=== PATIENT | female | born 1945 | race Caucasian/White ===

== ENCOUNTER 2020-09-18 07:42 | Outpatient (CLI) | payer MEDICARE, OTHER, SELFPAY ==
--- NOTE | 2020-09-18 07:50 | MR_ITS ---
WS: [id number] MRA ANGIOGRAPHY [place] HISTORY: Unspecified HEARING LOSS,UNSPEC EAR;TINNITUS UNSPEC EAR COMPARISON: None available. TECHNIQUE: 3-D MR angiography is performed of the [place]. All images are reviewed including source images. Distal vertebral and basilar arteries are intact with no significant stenosis or plaque. Posterior ce rebral arteries are normal course and caliber. Posterior communicating arteries are both patent. Intracranial portion of the internal carotid arteries are normal course and caliber. No significant a therosclerosis, stenosis or aneurysm identified. Middle and anterior cerebral arteries are both paten t with no significant disease. Anterior communicating artery is also normal. MR/MR angio head wo con [id number] IMPRESSION: Normal MRA [place].
--- NOTE | 2020-09-18 07:50 | MR_ITS ---
WS: [id number] MR VENOGRAPHY HEAD 3-D noncontrast imaging performed through the cerebral veins. All imaging is reviewed. HISTORY: Hearing loss. Tinnitus. COMPARISON: None available. Normal size and normal signal within the superior sagittal vein and the LEFT transverse sinus and sig moid sinus and jugular vein. There is absent signal and flow in the RIGHT transverse sinus through th e jugular vein. RIGHT jugular foramen appears small caliber as compared to the LEFT. MR/[place] [id number] IMPRESSION: 1. Lack of flow voids within the LEFT transverse sinus through the jugular vei n. This may be related to thrombosis and occlusion but more likely due to hypop lasia. No prior MRI brain or CTs. On the recent angiogram [place] ther e is no significant volume loss or infarct identified within the RIGHT brain. 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 2. To confirm no dural venous sinus thrombosis consider follow-up CT venogram.
== END 2020-09-18 07:43 | disposition home or self-care (01) ==
LOC: RADSHAW 07:48
PROVIDERS: PCP Family Medicine; Visit Provider Specialist
DX: H91.90 Unspecified hearing loss, unspecified ear (principal); H93.19 Tinnitus, unspecified ear
CPT/HCPCS: 70544

== ENCOUNTER 2020-10-16 09:59 | Outpatient (CLI) | payer MEDICARE, OTHER, SELFPAY ==
--- NOTE | 2020-10-16 10:12 | USCV_ITS ---
Win Leni Age: 75 Gender: F : 1945 Exam Date: 10/16/2020 10:16 Ordering Phys: Yossi Brice MD Technologist: Shauna Paredes Exam Location: [facility] [place] Indication: RINGING IN RT EAR Risk Factors: Unknown Previous Vascular Surgery: None Right Brachial BP: / Left Brachial BP: / Right Left Velocity (cm/s) Spectral Plaque Velocity (cm/s) Spectral Plaque Syst/Diast Broadening Syst/Diast Broadening 84.90/ 19.00 Prox CCA 57.70 / 14.00 44.40/ 10.80 Mid CCA 67.30 / 18.70 56.20/ 20.70 Distal CCA 63.90 / 18.70 66.00/ 25.70 Prox ICA 63.20 / 16.10 78.90/ 25.70 Mid ICA 78.10 / 39.60 83.20/ 29.20 Distal ICA 84.70 / 28.00 54.90 ECA 49.00 1.88 ICA/CCA 1.26 Antegrade Vertebral Antegrade 35.20/ 12.90 cm/s 39.10/ 10.50 cm/s Tri Subclavian Tri 74.80 86.70 FINDINGS Comparison: none available. No significant elevation of systolic or diastolic velocities. Waveforms are normal. Minimal bilateral, intimal thickening with no elevation of velocity. CONCLUSIONS Bilateral ICA stenosis less than 50%. Minimal atherosclerosis. Dr. Lazara Ward DO (Electronically Signed) Final Date: 16 October 2020 11:15 S
== END 2020-10-16 10:00 | disposition home or self-care (01) ==
PROVIDERS: PCP Family Medicine; Visit Provider Specialist
DX: H93.A1 Pulsatile tinnitus, right ear (principal); M26.601 Right temporomandibular joint disorder, unspecified; I65.23 Occlusion and stenosis of bilateral carotid arteries
CPT/HCPCS: 93880

== ENCOUNTER → 2022-06-13 10:58 | Outpatient (BNVA) | payer MEDICARE, OTHER, SELFPAY | PROVIDERS: PCP Family Medicine; Visit Provider Registered Nurse Neonatal Intensive Care | DX: R05.9 Cough, unspecified (principal); U07.1 COVID-19 | CPT/HCPCS: 87426 ==

== ENCOUNTER 2022-10-11 13:32 | Outpatient (CLI) | payer MEDICARE, OTHER, SELFPAY ==
--- NOTE | 2022-10-11 13:38 | CT_ITS ---
WS: [id number] CT ABDOMEN PELVIS TECHNIQUE: Contrast-enhanced CT of the abdomen and pelvis with coronal and sagittal reformatted image s. CLINICAL INFORMATION: R SIDED ABDOMINAL PAIN COMPARISON: None. DLP: 974.[address] scans at [facility] use at least one of these dose optimization techniques: automated e xposure control; mA and/or kV adjustment per patient size (includes targeted exams where dose is matc hed to clinical indication); or iterative reconstruction. FINDINGS: In the RIGHT lower quadrant, there is a low-attenuation fluid collection about the appendix measuring approximately 5.5 x 5.1 cm suspicious for appendiceal abscess. Associated peripheral enhancement. Th is appears somewhat well encapsulated with surrounding ileal bowel loops. Cecum drapes over the ventr al surface of the collection with associated inflammatory stranding and thickening likely reactive. S uspected tortuous appendix within the suspected abscess cavity. Additional consideration would be arianna endix mucocele. Bibasilar atelectasis. Normal liver. Normal spleen. Small esophageal hernia. Normal portal vein and s plenic vein. Normal pancreatic parenchymal enhancement. Adrenal glands are normal. Normal renal paren chymal enhancement. No hydronephrosis. Grade 1 anterolisthesis L4 on L5. Disc space narrowing worse at L5-S1. Normal caliber abdominal aorta . Celiac and SMA are patent. Small amount of free fluid in the pelvis. Fat-containing umbilical herni a. CT/CT abdomen pelvis w con* [id number] IMPRESSION: 1. Low-attenuation fluid collection about the appendix in the RIGHT lower quad rant suspicious for ruptured appendix with abscess. This measures approximately 5.5 x 5.1 cm. This appears relatively well encapsulated. Additional considerat ion would be a mucocele of the appendix. 2. Associated inflammatory stranding and diffuse thickening of the cecum which drapes over the anterior aspect of the fluid collection. 3. Small amount of free fluid in the pelvis. 4. Small esophageal hiatal hernia. 5. No other acute findings. 6. Grade 1 anterolisthesis L4 on L5. Notified Yossi Canseco MD at 10/11/2022 2:47 PM. Patient transferred to the ER for further evaluation.
[2022-10-11] MEDS: iohexol 350 mg/mL 500 mL Btl (per mL) IV (14:07)
== END 2022-10-11 13:33 | disposition home or self-care (01) ==
LOC: RAD 13:34
PROVIDERS: PCP Family Medicine; Visit Provider Family Medicine
DX: R10.9 Unspecified abdominal pain (principal); K44.9 Diaphragmatic hernia without obstruction or gangrene
CPT/HCPCS: 74177; Q9967

== ENCOUNTER 2022-10-11 14:32 | Inpatient (IN) | payer MEDICARE, OTHER, SELFPAY ==
[2022-10-11] VITALS (20 sets, daily range): BP systolic 110–176; BP diastolic 54–79; PULSE 66–84; RESP 16–21; TEMP 36.6–37; O2SAT 91–100; BMI 28.5
--- NOTE | 2022-10-11 14:34 | XR_ITS ---
WS: [id number] Portable AP upright chest, 10/11/2022 Clinical Data: dyspnea/cough Comparison: None Findings: No nodules, masses or effusions are seen. The heart is normal. The pulmonary vascularity is not increased. No pneumonia or pneumothorax is seen. The aortic arch and descending thoracic aorta s how tortuosity. XR/XR chest 1V portable [id number] Impression: Atherosclerosis.
--- NOTE | 2022-10-11 14:53 | W.ED.ABDPA2 ---
HPI - Abdominal Pain General: Chief Complaint: Abdominal Pain Stated Complaint: Perferated appendix per Dr. Canseco Time Seen by Provider: 10/11/22 14:34 Source: patient Mode of arrival: ambulatory History of Present Illness: 7-year-old female who presents to the emergency room from her doctor's office with low right lower quadrant abdominal pain. She and her primary care doctor earlier in the day in the office had a palpable mass in the right lower quadrant. It began around September 29, it has wax and wane since then. She was seen in an urgent care setting, they thought it was constipation or a viral illness that point she did not quite as much pain, is progressed since then. She seen Dr. Canseco in the office this morning he reportedly felt a palpable mass referred for CT which confirmed a perforated appendix with a rather large walled off abscess on the CT I measured it at 6 cm x 5.4 cm. She is not on any anticoagulants she last ate around 7 AM this morning MD elicited complaint: abdominal pain Onset (ago): day(s) (12) Pain Consistency: constant Location: RLQ Severity: severe Quality: cramping Radiation: none Exacerbating factors: nothing Relieving factors: nothing Associated Symptoms: Reports bloating, change in bowel habits, GI cramping, nausea and poor appetite; Denies anorexia, belching, change in stool character, chills, coffee ground emesis, constipation, diarrhea, dyspepsia, dysuria, excessive flatus, fever(s), heartburn, hematochezia, hematuria, hematemesis, fecal incontinence, loose stools, melena, syncope and vomiting Review of Systems Const: Denies: fever(s) or chills ENMT: Denies: throat pain, ear or mastoid pain, nasal discharge or nasal congestion Card: Denies: syncope Resp: Denies: dyspnea, productive cough or non-productive cough GI: Reports: abdominal pain, nausea, bloating, GI cramping and change in bowel habits; Denies: vomiting, hematemesis, coffee ground emesis, heartburn, diarrhea, constipation, belching, excessive flatus, fecal incontinence, change in stool character, hematochezia or melena : Denies: dysuria or hematuria Skin/Breast: Denies: rash or pruritus PFSH ED PFSH: Medical History HTN (hypertension) Surgical History Status post total knee replacement, bilateral Family History Other CAD (coronary artery disease) Cancer Stroke Denies family history of Diabetes Social History Alcohol intake: never Physical Exam Const: COMMON NORMALS: no acute distress GENERAL APPEARANCE: cooperative and comfortable ORIENTATION/CONSCIOUSNESS: Yes awake, Yes oriented to person, Yes oriented to place and Yes oriented to time HENMT: COMMON NORMALS: normocephalic, atraumatic and hearing grossly normal bilaterally HEAD & SCALP: normocephalic and atraumatic Resp: COMMON NORMALS: normal respiratory effort, No retractions, No use of accessory muscles and clear to auscultation bilaterally AUSCULTATION: clear to auscultation bilaterally Cardio: COMMON NORMALS: regular rate, regular rhythm and No murmurs present (Cardio) RATE: regular rate RHYTHM: regular rhythm GI: COMMON NORMALS: No hepatosplenomegaly present AUSCULTATION: Yes normoactive bowel sounds PALPATION: Yes Tenderness to palpation present (GI) Details: RLQ, Yes Guarding due to palpation present (GI) in the RLQ and Yes No hepatosplenomegaly present Extremity: COMMON NORMALS: normal to inspection, capillary refill normal, no clubbing, cyanosis or edema, no calf tenderness and no pedal edema Neuro: SENSORIUM/ORIENTATION: Yes oriented to person, Yes oriented to place and Yes oriented to time Skin: COMMON NORMALS: no rashes or lesions noted GENERAL SKIN EXAM: no rashes or lesions noted Course Vital Signs: Vital signs: Vital Signs Temperature 98.5 F 10/11/22 20:35 Pulse Rate 68 10/12/22 04:00 Respiratory Rate 17 10/12/22 04:00 Blood Pressure 133/76 10/12/22 04:00 Pulse Oximetry 95 10/12/22 04:00 Oxygen Delivery Me thod 10/12/22 04:00 Oxygen Flow Rate 1 10/12/22 04:00 MDM - Abdominal Pain Medical Decision Making Acute appendicitis with perforation and abscess formation that is well encapsulated. There is a potential that this is a appendiceal mucocele as well coronary radiologist favors abscessed appendix. Unfortunately Dr. Cote does not feel this is amenable to placement of a drain because of overlying portions of cecum and loops of small bowel. Discussed with on-call surgery he will review the imaging and discussed with the patient and see her in the department. Medical Records I reviewed the patient's medical records. Lab Data I reviewed the patient's lab results. 10/11/22 14:50 10/11/22 14:50 Labs/Radiology: Radiology Impressions Chest X-Ray 10/11/22 14:34 Impression: Atherosclerosis. Laboratory Results WBC 9.6 10^3/uL (4.0-10.0) 10/11/22 14:50 RBC 3.85 10^6/uL (4.1-5.3) L 10/11/22 14:50 Hgb 11.4 g/dL (11.5-15.3) L 10/11/22 14:50 Hct 35.4 % (37.0-47.0) L 10/11/22 14:50 MCV 91.9 fl (81-99) 10/11/22 14:50 MCH 29.6 pg (28.0-34.0) 10/11/22 14:50 MCHC 32.2 g/dL (30.0-36.0) 10/11/22 14:50 RDW 13.3 % (12.1-15.1) 10/11/22 14:50 Plt Count 368 10^3/cmm (130-400) 10/11/22 14:50 MPV 9.5 fL (7.4-10.4) 10/11/22 14:50 Neut % (Auto) 82.9 % 10/11/22 14:50 Lymph % (Auto) 10.8 % 10/11/22 14:50 [place] % (Auto) 5.3 % 10/11/22 14:50 Eos % (Auto) 0.5 % 10/11/22 14:50 Baso % (Auto) 0.1 % 10/11/22 14:50 Neut # (Auto) 7.98 10^3/uL (1.8-7.7) H 10/11/22 14:50 Lymph # (Auto) 1.0 10^3/uL (0.8-4.8) 10/11/22 14:50 [place] # (Auto) 0.5 10^3/uL (0.2-0.9) 10/11/22 14:50 Eos # (Auto) 0.1 10^3/uL (0.0-0.8) 10/11/22 14:50 Baso # (Auto) 0.0 10^3/uL (0.0-0.1) 10/11/22 14:50 Nucleated RBC % (auto) 0 % 10/11/22 14:50 Nucleated RBCs # 0.0 /100WBC 10/11/22 14:50 Sodium 134 mmol/L (136-145) L 10/11/22 14:50 Potassium 3.6 mmol/L (3.5-5.1) 10/11/22 14:50 Chloride 97 mmol/L (98-107) L 10/11/22 14:50 Carbon Dioxide 25 mmol/L (22-29) 10/11/22 14:50 Anion Gap 15.6 (5-19) 10/11/22 14:50 BUN 10 mg/dL (8-23) 10/11/22 14:50 Creatinine 0.6 mg/dL (0.5-0.9) 10/11/22 14:50 GFR Calculation Not Reportable 10/11/22 14:50 Glucose 91 mg/dL (65-115) 10/11/22 14:50 Calculated Osmolality 277 mOsm/kg (285-295) L 10/11/22 14:50 Calcium 8.7 mg/dL (8.5-10.5) 10/11/22 14:50 Total Bilirubin 0.4 mg/dL (0.15-1.2) 10/11/22 14:50 AST 16 U/L (0-32) 10/11/22 14:50 ALT 25 U/L (0-33) 10/11/22 14:50 Alkaline Phosphatase 164 U/L (35-105) H 10/11/22 14:50 Total Protein 7.3 g/dL (6.6-8.7) 10/11/22 14:50 Albumin 3.3 g/dL (3.5-5.2) L 10/11/22 14:50 Globulin 4.0 g/dL (1.3-4.6) 10/11/22 14:50 Discharge Plan Discharge Patient Disposition: Admitted As Inpatient Admit Provider: Tonio Rutherford Clinical Impression: Acute appendicitis with appendiceal abscess Condition: Stable Coding Level of Care Code ED Furniture Dipper for Chg Fwd Exam Detailed
--- NOTE | 2022-10-11 14:55 | ECG_ITS ---
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 Measurements Intervals [place] Rate: 67 P: 47 DE: 153 QRS: 29 QRSD: 81 T: 31 QT: 389 QTc: 413 Interpretive Statements SINUS RHYTHM No previous ECG available for comparison Electronically Signed On 10-11-2022 20:28:34 MANAGER FILM by Belén Aguilar M.D. [id number]
[2022-10-11 14:58] LABS: Basophils % 0.1 %; Eosinophils # 0.1 10^3/uL (0.0-0.8); Eosinophils % 0.5 %; Hematocrit 35.4 % (37.0-47.0); Hemoglobin 11.4 g/dL (11.5-15.3); Lymphocytes % 10.8 %; Mean Corpuscular HGB Conc 32.2 g/dL (30.0-36.0); Mean Corpuscular Hemoglobin 29.6 pg (28.0-34.0); Mean Corpuscular Volume 91.9 fl (81-99); Mean Platelet Volume 9.5 fL (7.4-10.4); Monocytes # 0.5 10^3/uL (0.2-0.9); Monocytes % 5.3 %; Neutrophils # 7.98 10^3/uL (1.8-7.7); Neutrophils % 82.9 %; Nucleated Red Blood Cells % 0 %; Platelet Count 368 10^3/cmm (130-400); Red Blood Count 3.85 10^6/uL (4.1-5.3); Red Cell Distribution Width 13.3 % (12.1-15.1); White Blood Count 9.6 10^3/uL (4.0-10.0)
[2022-10-11 15:20] LABS: Alanine Aminotransferase 25 U/L (0-33); Albumin Level 3.3 g/dL (3.5-5.2); Alkaline Phosphatase 164 U/L (35-105); Anion Gap 15.6 (5-19); Aspartate Amino Transferase 16 U/L (0-32); Blood Urea Nitrogen 10 mg/dL (8-23); Calcium 8.7 mg/dL (8.5-10.5); Carbon Dioxide 25 mmol/L (22-29); Chloride 97 mmol/L (98-107); Creatinine Clr Calc Pharmacy 57.2817; Glucose 91 mg/dL (65-115); Osmolality Calculated 277 mOsm/kg (285-295); Potassium 3.6 mmol/L (3.5-5.1); Sodium 134 mmol/L (136-145); Total Bilirubin 0.4 mg/dL (0.15-1.2); Total Protein 7.3 g/dL (6.6-8.7)
[2022-10-11] MEDS: piperacillin-tazobactam 3.375 GM in sodium chloride 0.9% (plus) 50 ML IV ×2 (15:30→23:08)
--- NOTE | 2022-10-11 15:44 | P.HP_ITS ---
Providers/Chief Complaint Admitting Physician: Tonio Rutherford MD Primary Care Provider: Yossi Canseco MD Chief Complaint: Perferated appendix per Dr. Canseco History of Present Illness Leni Walden is a 77 year old female with 12 day history of RLQ abdominal pain, found on CT obtained today by PCP Dr. Canseco to have perforated appendicitis. Patient reports last meal 7am. Patient reports last colonoscopy 1 year ago was normal. She denies any blood per rectum. She does report nightly fevers. Review of Systems General: Reports: 10 or more systems reviewed and unremarkable except in HPI and below GI: Reports: abdominal pain (RLQ) Medications/Allergies Home Medications Medication Instructions Recorded Confirmed Last Taken Type calcium carbonate 400 mg calcium 400 mg PO DAILY 11/10/20 06/13/22 Unknown History (1,000 mg) chewable tablet (Antacid Ultra Strength) hydrochlorothiazide 12.5 mg tablet 12.5 mg PO DAILY 11/10/20 06/13/22 Unknown History lactobacillus combination no.9 4 4,000 mmu cells PO DAILY 11/10/20 06/13/22 Unknown History billion cell capsule (Adult 50 Plus Probiotic) multivitamin (Daily Multi-Vitamin 1 tab PO DAILY 11/10/20 06/13/22 Unknown History tablet) oxybutynin chloride 5 mg tablet 5 mg PO DAILY 12/06/21 06/13/22 Unknown History nirmatrelvir 300 mg (150 mg See Rx Instructions PO .COMPLEX 06/13/22 06/13/22 Unknown Rx x2)-ritonavir 100 mg tablet,dose PRN covid #30 tabs pack(EUA) (Paxlovid) Allergies Allergy/AdvReac Type Severity Reaction Status Date / Time Sulfa (Sulfonamide Allergy sick to Verified 06/13/22 10:54 Antibiotics) stomach PFSH Acute PFSH: Medical History HTN (hypertension) Surgical History Status post total knee replacement, bilateral Family History Other CAD (coronary artery disease) Cancer Stroke Denies family history of Diabetes Social History Alcohol intake: never Vitals/I&O/Wt Last Vital Signs Temp 98.5 F 10/11/22 14:37 Pulse 73 10/11/22 14:37 Resp 16 10/11/22 14:37 BP 147/75 10/11/22 14:37 Pulse Ox 96 10/11/22 14:37 O2 Del Method 10/11/22 14:37 Weight last 48 hrs Weight 161 lb Physical Exam Const: COMMON NORMALS: no acute distress, average body habitus, patient oriented x3 and alert GENERAL APPEARANCE: cooperative and comfortable HENMT: COMMON NORMALS: normocephalic and moist oral mucous membranes Eye: COMMON NORMALS: EOMs intact bilaterally GENERAL EYE: appearance normal, both eyes and all related structures Neck/C-Spine: COMMON NORMALS: supple GENERAL: Yes normal visual inspection Chest: COMMONS NORMALS: normal inspection of the chest Resp: COMMON NORMALS: normal respiratory effort and No use of accessory muscles EFFORT & INSPECTION: Yes able to speak in complete sentences and Yes symmetric chest movement Cardio: COMMON NORMALS: regular rate and regular rhythm PERIPHERAL PULSES: radial pulses present GI: PALPATION: Yes Soft to palpation, Yes Tenderness to palpation present (GI) Details: RLQ and Yes Palpable mass present (RLQ) Extremity: COMMON NORMALS: normal to inspection Neuro: COMMON NORMALS: patient oriented x3, moves all extremities, no focal motor deficits and no sensory deficits noted Psych: COMMON NORMALS: mental status grossly normal JUDGEMENT: Good judgement present (Psych) Skin: COMMON NORMALS: no rashes or lesions noted Sepsis: Is patient septic: No Data 10/11/22 14:50 10/11/22 14:50 CT Abd/Pel: I personally reviewed and interpreted this imaging study as follows: My impression: RLQ fluid collection likely abscess from perforated appendicitis EKG 1: EKG computer-generated impression: normal sinus rhythm A&P Assessment and plan (1) Acute appendicitis with appendiceal abscess: Plan Perforated appendicitis not amenable to percutaneous drainage due to overlying bowel loops. Will plan for laparoscopic possible open appendectomy, right hemicolectomy if needed. 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
--- NOTE | 2022-10-11 16:07 | PC.PHAR ---
pt states she takes care of her own medications-pt states she had a rx for tamiflu filled 09/29/22 5d/s pt states she only took around 5 caps states she last took around 10/01/22-
[2022-10-11] MEDS: sodium chloride 0.9% 1,000 ML 30 ML IV (16:25)
--- NOTE | 2022-10-11 16:34 | ANES.PREANE2 ---
Pre-Anesthetic Assessment Height/Weight: Height 1.6 m Weight 73.028 kg Temp Pulse Resp BP Pulse Ox O2 Del Method 97.9 F 75 16 176/79 96 10/11/22 16:18 10/11/22 16:18 10/11/22 16:18 10/11/22 16:18 10/11/22 14:37 10/11/22 16:18 Operation Date: 10/11/22 16:30 Proposed Procedures p Laparoscopic Appendectomy(Not Applicable) - Tonio Rutherford MD Familial anesthetic complications: none Was Beta Price taken within 24 hours: N/A Was Clonidine taken within 24 hours: N/A Social No alcohol and No tobacco Exam alert, oriented x 3, clear to auscultation bilaterally and regular rate & rhythm Airway Submandibular: within normal limits Cervical ROM: within normal limits Mallampati: Class II Dentition: partials CV/HEM Hypertension Anesthetic Plan ASA status: 2E Anesthesia: General (RSI) Medications/Allergies Home Medications Medication Instructions Recorded Confirmed Last Taken Type hydrochlorothiazide 12.5 mg tablet 12.5 mg PO DAILY 11/10/20 06/13/22 Unknown History L.acidophil-L.casei-B.bifid-B.longum-FOS 1 cap PO BEDTIME 10/11/22 10/11/22 10/10/22 History 2 billion cell-50 mg capsule (Probiotic Blend) calcium carbonate 500 mg calcium 500 mg PO BID PRN unknown 10/11/22 10/11/22 Unknown History (1,250 mg) chewable tablet cranberry 500 mg capsule 500 mg PO QAM 10/11/22 10/11/22 10/11/22 08:00 History fluticasone propionate 50 2 spray intranasal DAILY PRN 10/11/22 10/11/22 Unknown History mcg/actuation nasal Allergy Symptoms spray,suspension ibuprofen 200 mg tablet 400 mg PO Q6H PRN Pain 10/11/22 10/11/22 10/11/22 00:00 History multivitamin 1 tab PO QAM 10/11/22 10/11/22 10/11/22 History ondansetron 4 mg disintegrating 4 mg PO Q8H PRN Nausea And Vomiting 10/11/22 10/11/22 Unknown History tablet oxybutynin chloride 5 mg 5 mg PO QAM 10/11/22 10/11/22 10/11/22 08:00 History tablet,extended release 24 hr Allergies Allergy/AdvReac Type Severity Reaction Status Date / Time Sulfa (Sulfonamide Allergy sick to Verified 10/11/22 16:07 Antibiotics) stomach Current Medications Generic Name Dose Route Start Last Admin Trade Name Deondreq PRN Reason Stop Dose Admin Sodium Chloride 1,000 mls @ 30 mls/hr 10/11/22 16:30 10/11/22 16:25 Sodium Chloride 0.9% IV 10/12/22 16:29 30 mls/hr .Q24H SAÚL Administration PFSH Anesthesia Medical History HTN (hypertension) Surgical History Status post total knee replacement, bilateral Family History Other CAD (coronary artery disease) Cancer Stroke Denies family history of Diabetes Social History Alcohol intake: never Data Anesthesia 10/11/22 14:50 10/11/22 14:50 Short CBC 10/11/22 Range/Units 14:50 WBC 9.6 (4.0-10.0) 10^3/uL Hgb 11.4 L (11.5-15.3) g/dL Hct 35.4 L (37.0-47.0) % MCV 91.9 (81-99) fl Plt Count 368 (130-400) 10^3/cmm Neut % (Auto) 82.9 % Neut # (Auto) 7.98 H (1.8-7.7) 10^3/uL BMP 10/11/22 14:50 Sodium 134 L Potassium 3.6 Chloride 97 L Carbon Dioxide 25 BUN 10 Creatinine 0.6 Glucose 91 Calcium 8.7 Liver Function 10/11/22 Range/Units 14:50 Total Bilirubin 0.4 (0.15-1.2) mg/dL AST 16 (0-32) U/L ALT 25 (0-33) U/L Alkaline Phosphatase 164 H (35-105) U/L Albumin 3.3 L (3.5-5.2) g/dL Microbiology 10/11/22 15:55 Blood Culture - Preliminary Blood SPECIMEN COLLECTED Cardiac Studies: No Data to Display
--- NOTE | 2022-10-11 17:34 | SUR.OPER ---
DIANNE COLLINS UPDATED FAMILY [id number]
--- NOTE | 2022-10-11 18:29 | SUR.OPER ---
KARINA PACU UPDATED FAMILY TO CASE GOING OPEN [id number]
--- NOTE | 2022-10-11 18:38 | PM.MISC ---
Miscellaneous Note Purpose of Documentation: Went down to see patient just after I getting the call before 5 PM but she was already taken to the OR. Currently still in OR and procedure was converted to open. Will sign over to nighttime hospitalist.
--- NOTE | 2022-10-11 19:42 | P.OP_ITS ---
Operative Report Date of procedure: October 11, 2022 Pre-op diagnosis: Periappendiceal Abscess likely perforated appendicitis Post-op diagnosis: Periappendiceal Abscess with local purulent peritonitis Dilated appendix concerning for appendiceal mucocele Post-op findings: walled-off periappendiceal abscess local purulent peritonitis dilated appendix Procedure done: Ileocecectomy Specimens removed/disposition: Terminal ileum with appendix and cecum for permanent pathology Surgeon: Tonio Rutherford Anesthesia: General Estimated blood loss (mL): 150 Complications: none apparent Findings: walled-off periappendiceal abscess local purulent peritonitis dilated appendix concerning for appendiceal mucocele Condition: stable Disposition: PACU Brief History: Leni Walden is a 77F who presented with 12 days RLQ abdominal pain with CT obtained by PCP showing periappendiceal fluid collection likely perforated appendicitis. Unable to undergo IR drainage due to overlying loops of bowel. Procedure: The patient was brought to the operating room and positioned supine. GET anesthesia was induced without complication. The patient's left arm was tucked and right spread comfortably, abdomen prepped and draped in standard fashion. A preoperative timeout was held to confirm patient, procedure, site, and pertinent medical history. A 5mm trocar was placed to the left of the umbilicus using direct visualization technique and pneumoperitoneum established without complication. Additional 5mm trocars were placed under direct laparoscopic vision to the LLQ and suprapubic midline. The RLQ was evaluated and dense adhesions in the region of the ileocecal valve identified. Blunt and sharp retraction was utilized to free the distal ileum, sigmoid epiploica, and omental adhesions from the inflamed focus. A posterior abscess cavity was entered and purulent drainage suctioned away. The terminal ileum and proximal cecum were densely adherent to a dilated and turgid appendix. The decision was made to convert to open for ileocecectomy. A limited inferior midline incision was made and extended to just superior to the umbilicus as needed for exposure. Gentle blunt finger dissection was utilized to raise the inflamed ileocecal junction, permitting 60mm bowel load KIARA stapler to ligate and transect the uninvolved distal ileum. Enseal advanced bipolar device was used to ligate and transect the mesentery, gradually freeing and elevating the inflamed area. 60mm bowel load KIARA was used to transect the right colon after confirmation of excellent bloodflow to the area of future anas tomosis. The terminal ileum, appendix, and cecum were removed en bloc and sent as specimen for permanent pathology. The terminal ileal margin had palpable mesenteric pulse. A [id number] functional end-to-end anastomosis was made with a common 60mm KIARA bowel load with the common enterotomy closed with an additional firing of the same. The peritoneal cavity was copiously irrigated with warm saline. A peritoneal drain was placed to the RLQ via the LLQ 5mm trocar site and secured with 3-0 nylon drain stitch. The fascia was closed with running looped PDS. The subcutaneous tissues were irrigated and local anesthestic infiltrated. The skin was closed with denice and dressed with adhesive dressings. The patient was transferred to PACU in stable condition. Related Problem List Diagnoses (1) Acute appendicitis with appendiceal abscess: (2) Mucocele of appendix:
--- NOTE | 2022-10-11 20:17 | P.HP_ITS ---
Providers/Chief Complaint Admitting Physician: Tonio Rutherford MD Primary Care Provider: Yossi Canseco MD Chief Complaint: Perferated appendix per Dr. Canseco History of Present Illness Leni Walden is a 77 year old female past medical history of hypertension, bilateral knee replacement presented to the hospital after being sent from her doctor's office secondary to right lower quadrant abdominal pain. She saw her PCP and had a palpable mass in the right lower quadrant initially around September 29. It was waxing and waning since then. She also went to urgent care where they thought it was constipation with a viral illness but she does not have that much pain in the beginning but at this point it has progressed. She went to see Dr. Canseco who referred her to have a CT scan of the abdomen done which showed a perforated appendix with a large walled off abscess about 6 cm x 5.4 cm. Patient denies being on any anticoagulants at home and her last meal was 7 AM this morning. Most of this history is obtained by the chart as patient is at this point postop and still recovering from anesthesia. Patient was diagnosed with acute appendicitis with perforation and abscess perforation and taken to surgery. Case was also initially discussed with interventional radiology but because of overlying portions of cecum and loops of small bowel percutaneous drain could not be placed. Patient underwent laparoscopic surgery today which had to be converted to open laparotomy in the OR. Over report notes that dilated appendix concerning for appendiceal mucocele was seen. Sample sent to pathology. Estimated blood loss 150 cc. Peritoneal drain placed to right lo wer quadrant. The left lower quadrant trocar site. Patient was transferred to PACU in stable condition. Hemodynamically she stayed stable throughout the procedure. Patient is currently on 2 L nasal cannula saturating 94 to 95%. Patient has been seen by customs entry writer postoperatively. Medications/Allergies Home Medications Medication Instructions Recorded Confirmed Last Taken Type hydrochlorothiazide 12.5 mg tablet 12.5 mg PO QAM 11/10/20 10/11/22 10/11/22 08:00 History L.acidophil-L.casei-B.bifid-B.longum-FOS 1 cap PO BEDTIME 10/11/22 10/11/22 10/10/22 History 2 billion cell-50 mg capsule (Probiotic Blend) calcium carbonate 500 mg calcium 500 mg PO BID PRN unknown 10/11/22 10/11/22 Unknown History (1,250 mg) chewable tablet cranberry 500 mg capsule 500 mg PO QAM 10/11/22 10/11/22 10/11/22 08:00 History fluticasone propionate 50 2 spray intranasal DAILY PRN 10/11/22 10/11/22 Unknown History mcg/actuation nasal Allergy Symptoms spray,suspension ibuprofen 200 mg tablet 400 mg PO Q6H PRN Pain 10/11/22 10/11/22 10/11/22 00:00 History multivitamin 1 tab PO QAM 10/11/22 10/11/22 10/11/22 History ondansetron 4 mg disintegrating 4 mg PO Q8H PRN Nausea And Vomiting 10/11/22 10/11/22 Unknown History tablet oxybutynin chloride 5 mg 5 mg PO QAM 10/11/22 10/11/22 10/11/22 08:00 History tablet,extended release 24 hr Allergies Allergy/AdvReac Type Severity Reaction Status Date / Time Sulfa (Sulfonamide Allergy sick to Verified 10/11/22 16:07 Antibiotics) stomach PFSH Acute PFSH: Medical History HTN (hypertension) Surgical History Status post total knee replacement, bilateral Family History Other CAD (coronary artery disease) Cancer Stroke Denies family history of Diabetes Social History Alcohol intake: never Vitals/I&O/Wt Last Vital Signs Temp 97.8 F 10/11/22 19:40 Pulse 77 10/11/22 20:10 Resp 17 10/11/22 20:10 BP 119/62 10/11/22 20:10 Pulse Ox 95 10/11/22 20:10 O2 Del Method 10/11/22 20:10 O2 Flow Rate 2 10/11/22 20:10 10/11/22 10/11/22 10/11/22 06:59 14:59 22:59 Intake Total 800 / 800 Output Total 150 / 150 Balance 650 / 650 Weight last 48 hrs Weight 73.028 kg Physical Exam Narrative: General: Alert oriented x3, patient seen laying in bed appearing comfortable, denies any pain at this time. says she is sore. HEENT: Normocephalic, atraumatic, EOMI, breathing normally on 2L NC Cardio: Regular rate rhythm, normal S1-S2, Respiratory: Good bilateral air entry, no wheezes no rhonchi appreciated GI: Abdomen soft, approapriately tender to palpation, some guarding as expected, absent bowel sounds. Extremities: no edema. Data 10/11/22 14:50 10/11/22 14:50 Micro: Microbiology 10/11/22 15:55 Blood Culture - Preliminary Blood SPECIMEN COLLECTED A&P Assessment and plan (1) Mucocele of appendix: (2) Acute appendicitis with appendiceal abscess: Plan #Acute appendicitis with abscess formation and appendiceal perforation s/p laparotomy #History of hypertension ? Continue on Zosyn for another 48 hours ? Check blood culture, urine culture ? IV Tylenol if needed for fever ? Morphine for pain. ? Continue to wean off oxygen as able ? Continue IV fluids normal saline 100 cc/h ? Await pathology report ? Keep n.p.o. until cleared by general surgery ? Protonix 40 IV daily ? Heparin 5000 subcu twice daily for DVT prophylaxis ? May use IV agents for blood pressure control if needed however at this time I do not believe any medication is warranted ? Accu-Chek every 6 hours -PT OT once able and surgically cleared Full code Attestations Medical Necessity Statement*: Will cross greater than 2 midnight stay for management of appendiceal perforation abscess, status post laparotomy. Patient will need to stay in the hospital for postop care. Expect her stay to be 48 to 72 hours. Coding Level of Care Code Acute Global Program Director for [facility] Fwd Diagnoses Mucocele of appendix K38.8 Acute appendicitis with appendiceal abscess K35.33
[2022-10-11] MEDS: sodium chloride 0.9% 1,000 ML 100 ML IV (21:23)
[2022-10-11] MEDS: pantoprazole 40 mg SDV IVP (21:23)
[2022-10-11] MEDS: heparin 5,000 unit/mL INJ 1 mL 5000 UNIT SUBCUT (21:23)
[2022-10-11 22:49] LABS: Glucose Point of Care 167 mg/dL (70-110)
[2022-10-11] MEDS: morphine 4 mg/mL SDV 1 mL 2 MG IVP (23:06)
[2022-10-12] VITALS (12 sets, daily range): BP systolic 112–133; BP diastolic 66–76; PULSE 61–75; RESP 16–18; TEMP 36.8–37.1; O2SAT 89–96
[2022-10-12] LABS: Procalcitonin 0.57 ng/mL (0-0.5)
[2022-10-12] MEDS: morphine 4 mg/mL SDV 1 mL 2 MG IVP (02:36)
[2022-10-12 05:05] LABS: Glucose Point of Care 168 mg/dL (70-110)
[2022-10-12 05:26] LABS: Basophils % 0.2 %; Hematocrit 32.1 % (37.0-47.0); Hemoglobin 10.4 g/dL (11.5-15.3); Lymphocytes # 0.5 10^3/uL (0.8-4.8); Lymphocytes % 4.9 %; Mean Corpuscular HGB Conc 32.4 g/dL (30.0-36.0); Mean Corpuscular Hemoglobin 29.4 pg (28.0-34.0); Mean Corpuscular Volume 90.7 fl (81-99); Mean Platelet Volume 9.7 fL (7.4-10.4); Monocytes # 0.3 10^3/uL (0.2-0.9); Monocytes % 2.6 %; Neutrophils # 9.93 10^3/uL (1.8-7.7); Nucleated Red Blood Cells % 0 %; Platelet Count 344 10^3/cmm (130-400); Red Blood Count 3.54 10^6/uL (4.1-5.3); Red Cell Distribution Width 13.2 % (12.1-15.1); White Blood Count 10.8 10^3/uL (4.0-10.0)
[2022-10-12 05:47] LABS: Anion Gap 16.1 (5-19); Blood Urea Nitrogen 11 mg/dL (8-23); Calcium 7.8 mg/dL (8.5-10.5); Carbon Dioxide 23 mmol/L (22-29); Chloride 101 mmol/L (98-107); Creatinine Clr Calc Pharmacy 57.2817; Glucose 157 mg/dL (65-115); Magnesium 1.9 mg/dL (1.7-2.3); Osmolality Calculated 285 mOsm/kg (285-295); Potassium 4.1 mmol/L (3.5-5.1); Sodium 136 mmol/L (136-145)
[2022-10-12 06:09] LABS: Urine Appearance Clear (CLEAR); Urine Color Yellow (Yellow)
[2022-10-12 06:10] LABS: pH Urine 5 (5-7)
[2022-10-12 06:11] LABS: Protein Urine Neg (Negative)
[2022-10-12 06:13] LABS: Blood Urine 2+ (Negative); Glucose Urine UA Norm (Normal); Ketones Urine 1+ (Negative); Nitrate Urine Negative (Negative)
[2022-10-12 06:14] LABS: Bilirubin Urine Neg (Negative); Leukocyte Esterase Urine Negative (Negative); Urobilinogen Urine Norm (Negative)
[2022-10-12 06:15] LABS: Add Urine Microscopic? YES
[2022-10-12 06:16] LABS: WBC Urine 0-4 /hpf (0-5)
[2022-10-12 06:17] LABS: Add Urine Culture? No; Amorphous Sediment Urine 1+ /hpf
[2022-10-12] MEDS: sodium chloride 0.9% 1,000 ML 100 ML IV ×2 (06:35→19:54)
--- NOTE | 2022-10-12 07:31 | P.PN_ITS ---
Subjective Subjective: No acute events overnight. In good spirits following surgery yesterday. Reports abdominal pain and some rib pain adequately controlled with medication. Tolerating liquids. Not yet passing flatus. Vitals/I&O/Wt Last Vital Signs Temp 98.5 F 10/11/22 20:35 Pulse 68 10/12/22 04:00 Resp 17 10/12/22 04:00 BP 133/76 10/12/22 04:00 Pulse Ox 95 10/12/22 04:00 O2 Del Method 10/12/22 04:00 O2 Flow Rate 1 10/12/22 04:00 10/11/22 10/12/22 10/12/22 22:59 06:59 14:59 Intake Total 900 / 900 970 / 1870 Output Total 190 / 190 Balance 710 / 710 970 / 1680 Weight last 48 hrs Weight 161 lb Physical Exam Const: COMMON NORMALS: no acute distress, average body habitus, patient oriented x3 and no limitations GENERAL APPEARANCE: cooperative and comfortable ORIENTATION/CONSCIOUSNESS: Yes awake, Yes oriented to person, Yes oriented to place and Yes oriented to time HENMT: COMMON NORMALS: normocephalic, atraumatic, external ears normal, Normal external nose present and moist oral mucous membranes HEAD & SCALP: normocephalic and atraumatic NOSE: Normal external nose present EXTERNAL EAR: Yes external ears normal Eye: COMMON NORMALS: EOMs intact bilaterally and no scleral icterus GENERAL EYE: appearance normal, both eyes and all related structures Neck/C-Spine: COMMON NORMALS: supple Lymph: LYMPHATIC: no lymphedema noted Chest: COMMONS NORMALS: normal inspection of the chest CHEST: Yes Symmetrical chest wall rise Resp: COMMON NORMALS: normal respiratory effort, No retractions and No use of accessory muscles EFFORT & INSPECTION: Yes able to speak in complete sentences and Yes symmetric chest movement Cardio: COMMON NORMALS: regular rate and regular rhythm RATE: regular rate RHYTHM: regular rhythm PERIPHERAL PULSES: radial pulses present GI: COMMON NORMALS: Soft to palpation INSPECTION: Yes incision (inferior midline) Inspection of incision: drainage (mild shadowing inferior, no purulent drainage) and Yes other (Abd drain with SS drainage ~60mL reported) PALPATION: Yes Soft to palpation and Yes Tenderness to palpation present (GI) (Appropriately) Extremity: COMMON NORMALS: normal to inspection Neuro: COMMON NORMALS: patient oriented x3, CN's II-XII intact bilaterally, moves all extremities, no focal motor deficits and no sensory deficits noted SENSORIUM/ORIENTATION: Yes oriented to person, Yes oriented to place and Yes marta ented to time Psych: COMMON NORMALS: mental status grossly normal, Normal thought process present, cooperative, normal affect and speech normal SPEECH: Yes normal speech THOUGHT PROCESS: Normal thought process present Skin: COMMON NORMALS: no rashes or lesions noted GENERAL SKIN EXAM: no rashes or lesions noted WOUNDS: Yes surgical site (inferior midline abdominal, surgical dressing intact) Details: no odor and denice Details: in place Data 10/12/22 04:45 10/12/22 04:45 Micro: Microbiology 10/11/22 20:41 Blood Culture - Preliminary Blood SPECIMEN COLLECTED 10/11/22 15:55 Blood Culture - Preliminary Blood SPECIMEN COLLECTED A&P Assessment and plan (1) Acute appendicitis with appendiceal abscess: (2) Mucocele of appendix: Plan POD1 from lap converted to open ileocecectomy for periappendiceal abscess with intraoperative findings consistent with appendiceal mucocele and associated acute appendicitis with abscess. Recovering as expected. Pain control PO: scheduled tylenol and prn oxycodone. Avoid NSAIDs for 14 days postoperatively due to primary anastomosis. CLD now, anticipate advancing to regular diet when passing flatus. Continue Zosyn IV for 48 hours postop provided WBC remains appropriate. Continue chemical DVT prophylaxis. Surgical drain to remain in place for now, anticipate removal prior to discharge. Encourage ambulation. Attestations Medical Necessity Statement*: POD1 from ileocecectomy awaiting return of bowel function. Requires 48 hours postoperative antibiotics for intraoperative abscess drainage. Coding Level of Care Code Acute Intake Manager [facility] Diagnoses Acute appendicitis with appendiceal abscess K35.33 Mucocele of appendix K38.8
[2022-10-12] MEDS: heparin 5,000 unit/mL INJ 1 mL 5000 UNIT SUBCUT ×2 (08:42→19:53)
[2022-10-12] MEDS: acetaminophen 325 mg Tablet 650 MG PO ×3 (08:42→19:51)
[2022-10-12] MEDS: piperacillin-tazobactam 3.375 GM in sodium chloride 0.9% (plus) 50 ML IV ×2 (08:43→17:30)
--- NOTE | 2022-10-12 09:00 | ANE.PACU2 ---
Inpatient post-anesthesia follow up: Airway intact: Yes Vital signs: Temperature 98.8 F Pulse Rate 69 Respiratory Rate 16 Blood Pressure 132/73 Pulse Oximetry 90 Oxygen Delivery Me thod Nasal Cannula Oxygen Flow Rate 1 Fraction of Inspir ed Oxygen Hydration adequate: Yes Nausea and vomiting: No Pain level: 2 Mental status: Baseline
[2022-10-12 09:27] LABS: Glucose Point of Care 225 mg/dL (70-110)
--- NOTE | 2022-10-12 12:31 | PM.PN ---
Subjective Subjective: Abdomen is sore and she is having some bloating. Has not passed gas. No BM. No eructation or vomiting. Tolerated small amount of clear liquids this morning. Some pain on inspiration, avoids taking deep breaths. Vitals/I&O/Wt Last Vital Signs Temp 98.3 F 10/12/22 12:00 Pulse 71 10/12/22 12:00 Resp 16 10/12/22 12:00 BP 112/66 10/12/22 12:00 Pulse Ox 92 10/12/22 12:00 O2 Del Method 10/12/22 12:00 O2 Flow Rate 1 10/12/22 04:00 10/11/22 10/12/22 10/12/22 22:59 06:59 14:59 Intake Total 900 / 900 970 / 1870 Output Total 190 / 190 360 / 360 Balance 710 / 710 970 / 1680 -360 / -360 Weight last 48 hrs Weight 73.028 kg Physical Exam Const: COMMON NORMALS: patient oriented x3 and alert GENERAL APPEARANCE: cooperative ORIENTATION/CONSCIOUSNESS: Yes awake HENMT: COMMON NORMALS: oropharynx normal Neck/C-Spine: COMMON NORMALS: no JVD Resp: COMMON NORMALS: normal respiratory effort and clear to auscultation bilaterally AUSCULTATION: clear to auscultation bilaterally Cardio: COMMON NORMALS: no JVD, regular rhythm, S1 normal heart sound present, S2 normal heart sound present and No murmurs present (Cardio) RHYTHM: regular rhythm HEART SOUNDS: S1 normal heart sound present and S2 normal heart sound present GI: COMMON NORMALS: Soft to palpation AUSCULTATION: Yes Absent bowel sounds PALPATION: Yes Soft to palpation OTHER: Mildly tender Extremity: COMMON NORMALS: no joint enlargement and no pedal edema Neuro: COMMON NORMALS: patient oriented x3 and moves all extremities SENSORIUM/ORIENTATION: Yes alert Skin: COMMON NORMALS: no rashes or lesions noted GENERAL SKIN EXAM: no rashes or lesions noted Data 10/12/22 04:45 10/12/22 04:45 Micro: Microbiology 10/11/22 20:41 Blood Culture - Preliminary Blood SPECIMEN COLLECTED 10/11/22 15:55 Blood Culture - Preliminary Blood SPECIMEN COLLECTED A&P Assessment and plan (1) Mucocele of appendix: Status post open ileocecectomy for periappendiceal abscess, local purulent peritonitis. Drain for now remains. Add I-S. Tolerating some small amount of clears today. Awaiting return of bowel function. Discussed with her to ambulate. IVF stopped today. Continue IV antibiotic coverage with Zosyn. (2) Acute appendicitis with appendiceal abscess: Attestations Medical Necessity Statement*: Continue admission for assessment management following complicated appendicitis with periappendiceal abscess, with local purulent peritonitis. Coding Level of Care Code Acute Dynamo Tender for [facility] Fwd Diagnoses Mucocele of appendix K38.8 Acute appendicitis with appendiceal abscess K35.33
[2022-10-12] MEDS: oxyCODONE 5 mg IR Tab/Cap PO ×2 (12:39→19:52)
[2022-10-12 14:35] LABS: Glucose Point of Care 168 mg/dL (70-110)
[2022-10-12] MEDS: pantoprazole 40 mg SDV IVP (19:53)
[2022-10-12 21:25] LABS: Glucose Point of Care 149 mg/dL (70-110)
[2022-10-13] VITALS (9 sets, daily range): BP systolic 107–130; BP diastolic 60–69; PULSE 60–74; RESP 16–18; TEMP 36.8–37.3; O2SAT 90–95
[2022-10-13] MEDS: acetaminophen 325 mg Tablet 650 MG PO ×4 (01:09→18:52)
[2022-10-13] MEDS: piperacillin-tazobactam 3.375 GM in sodium chloride 0.9% (plus) 50 ML IV ×3 (01:10→16:46)
[2022-10-13 01:27] LABS: Basophils % 0.1 %; Hematocrit 28.1 % (37.0-47.0); Hemoglobin 9.1 g/dL (11.5-15.3); Lymphocytes # 0.9 10^3/uL (0.8-4.8); Lymphocytes % 9.6 %; Mean Corpuscular HGB Conc 32.4 g/dL (30.0-36.0); Mean Corpuscular Hemoglobin 29.5 pg (28.0-34.0); Mean Corpuscular Volume 91.2 fl (81-99); Mean Platelet Volume 9.8 fL (7.4-10.4); Monocytes # 0.4 10^3/uL (0.2-0.9); Neutrophils # 7.61 10^3/uL (1.8-7.7); Neutrophils % 86.1 %; Nucleated Red Blood Cells % 0 %; Platelet Count 331 10^3/cmm (130-400); Red Blood Count 3.08 10^6/uL (4.1-5.3); Red Cell Distribution Width 13.5 % (12.1-15.1); White Blood Count 8.8 10^3/uL (4.0-10.0)
[2022-10-13 01:48] LABS: Alanine Aminotransferase 15 U/L (0-33); Albumin Level 2.8 g/dL (3.5-5.2); Alkaline Phosphatase 103 U/L (35-105); Anion Gap 12.8 (5-19); Aspartate Amino Transferase 12 U/L (0-32); Blood Urea Nitrogen 9 mg/dL (8-23); Calcium 7.6 mg/dL (8.5-10.5); Carbon Dioxide 25 mmol/L (22-29); Chloride 105 mmol/L (98-107); Creatinine Clr Calc Pharmacy 57.2817; Globulin 2.9 g/dL (1.3-4.6); Glucose 113 mg/dL (65-115); Osmolality Calculated 287 mOsm/kg (285-295); Potassium 3.8 mmol/L (3.5-5.1); Sodium 139 mmol/L (136-145); Total Bilirubin 0.3 mg/dL (0.15-1.2); Total Protein 5.7 g/dL (6.6-8.7)
[2022-10-13 04:45] LABS: Glucose Point of Care 114 mg/dL (70-110)
[2022-10-13] MEDS: oxyCODONE 5 mg IR Tab/Cap PO ×3 (06:17→20:33)
--- NOTE | 2022-10-13 07:29 | PM.PN ---
Subjective Subjective: No acute events overnight. Ambulated x3 yesterday. Reports moderate incisional pain well controlled with oral medications. Passing flatus this morning, awaiting BM. Vitals/I&O/Wt Last Vital Signs Temp 99.2 F 10/13/22 04:00 Pulse 71 10/13/22 04:00 Resp 16 10/13/22 06:17 BP 120/68 10/13/22 04:00 Pulse Ox 90 10/13/22 04:00 O2 Del Method 10/13/22 04:00 O2 Flow Rate 1 10/13/22 04:00 10/12/22 10/13/22 10/13/22 22:59 06:59 14:59 Intake Total 1770 / 2060 1050 / 3110 Balance 1770 / 1700 1050 / 2750 Weight last 48 hrs Weight 161 lb Physical Exam Const: COMMON NORMALS: no acute distress, patient oriented x3 and alert GENERAL APPEARANCE: cooperative and comfortable HENMT: COMMON NORMALS: normocephalic, atraumatic, external ears normal and Normal external nose present HEAD & SCALP: normocephalic and atraumatic NOSE: Normal external nose present EXTERNAL EAR: Yes external ears normal Eye: COMMON NORMALS: EOMs intact bilaterally and no scleral icterus GENERAL EYE: appearance normal, both eyes and all related structures ALIGNMENT: Yes alignment normal Chest: COMMONS NORMALS: normal inspection of the chest CHEST: Yes Symmetrical chest wall rise Resp: COMMON NORMALS: normal respiratory effort and No retractions EFFORT & INSPECTION: Yes able to speak in complete sentences and Yes symmetric chest movement OTHER: on 1L O2 via NC Cardio: COMMON NORMALS: regular rate and regular rhythm RATE: regular rate RHYTHM: regular rhythm PERIPHERAL PULSES: radial pulses present GI: COMMON NORMALS: Soft to palpation INSPECTION: No abdominal distension and Yes incision (low midline, denice intact) Inspection of incision: healing well PALPATION: Yes Soft to palpation and Yes Tenderness to palpation present (GI) (appropriate periincisional) OTHER: surgical drain in place with SS output Extremity: COMMON NORMALS: normal to inspection Neuro: COMMON NORMALS: patient oriented x3 SENSORIUM/ORIENTATION: Yes alert Data 10/13/22 01:12 10/13/22 01:12 Micro: Microbiology 10/11/22 20:41 Blood Culture - Preliminary Blood NEGATIVE TO DATE 10/11/22 15:55 Blood Culture - Preliminary Blood NEGATIVE TO DATE A&P Assessment and plan (1) Acute appendicitis with appendiceal abscess: (2) Mucocele of appendix: Plan POD2 from laparoscopic converted to open ileocecectomy for periappendiceal abscess with likely appendiceal mucocele, recovering as expected. Continue pain control PO PRN Ambulate To complete 48 hours postoperative antibiotics (Zosyn) this afternoon Passing flatus, advance diet as tolerated to regular Continue DVT ppx Anticipate removal of surgical drain prior to discharge Attestations Medical Necessity Statement*: Requires inpatient care for recovery from ileocecectomy, continued IV Abx Coding Level of Care Code Acute Service Station Manager for [facility] Fwd Diagnoses Acute appendicitis with appendiceal abscess K35.33 Mucocele of appendix K38.8
[2022-10-13] MEDS: heparin 5,000 unit/mL INJ 1 mL 5000 UNIT SUBCUT ×2 (09:52→20:34)
[2022-10-13 11:43] LABS: Glucose Point of Care 109 mg/dL (70-110)
--- NOTE | 2022-10-13 15:43 | PM.PN ---
Subjective Subjective: He states overall doing well. He did not have the best appetite today, but did try several items for breakfast. Did enjoy p.o. the most. Food is staying down. She is passing flatus. No BM so far. No irritation. Lower abdomen is still sore. She is spoken with surgery this morning, dressing was changed, diet was advanced, and the drainage is to be reassessed again tomorrow. She has ambulated 3 times yesterday, plans to do more walking today. Vitals/I&O/Wt Last Vital Signs Temp 98.5 F 10/13/22 12:00 Pulse 65 10/13/22 12:00 Resp 18 10/13/22 14:22 BP 113/69 10/13/22 12:00 Pulse Ox 93 10/13/22 12:00 O2 Del Method 10/13/22 12:00 O2 Flow Rate 1 10/13/22 12:00 10/13/22 10/13/22 10/13/22 06:59 14:59 22:59 Intake Total 1050 / 3110 650 / 650 Output Total 60 / 490 Balance 990 / 2620 650 / 650 Physical Exam Const: COMMON NORMALS: patient oriented x3 and alert GENERAL APPEARANCE: cooperative ORIENTATION/CONSCIOUSNESS: Yes awake HENMT: COMMON NORMALS: oropharynx normal Neck/C-Spine: COMMON NORMALS: no JVD Resp: COMMON NORMALS: normal respiratory effort and clear to auscultation bilaterally AUSCULTATION: clear to auscultation bilaterally Cardio: COMMON NORMALS: no JVD, regular rhythm, S1 normal heart sound present, S2 normal heart sound present and No murmurs present (Cardio) RHYTHM: regular rhythm HEART SOUNDS: S1 normal heart sound present and S2 normal heart sound present GI: COMMON NORMALS: Soft to palpation AUSCULTATION: Yes normoactive bowel sounds PALPATION: Yes Soft to palpation OTHER: Mildly tender Extremity: COMMON NORMALS: no joint enlargement and no pedal edema Neuro: COMMON NORMALS: patient oriented x3 and moves all extremities SENSORIUM/ORIENTATION: Yes alert Skin: COMMON NORMALS: no rashes or lesions noted GENERAL SKIN EXAM: no rashes or lesions noted Data 10/13/22 01:12 10/13/22 01:12 Micro: Microbiology 10/11/22 20:41 Blood Culture - Preliminary Blood NEGATIVE TO DATE 10/11/22 15:55 Blood Culture - Preliminary Blood NEGATIVE TO DATE A&P Assessment and plan (1) Mucocele of appendix: Continue IV antibiotic while she is here. Status post open ileocecectomy for periappendiceal abscess, local purulent peritonitis. She has been ambulating. Tolerating diet so far, passing flatus, although no BM yet. Drain will be reassessed again tomorrow. IVF discontinued. Requiring minimal oxygen which anticipate should improve. (2) Acute appendicitis with appendiceal abscess: Attestations Medical Necessity Statement*: Continue admission for assessment management following ileocolectomy for periappendiceal abscess and local purulent peritonitis. Coding Level of Care Code Acute Environmental Science Program Director for [facility] Diagnoses Mucocele of appendix K38.8 Acute appendicitis with appendiceal abscess K35.33
[2022-10-13 17:07] LABS: Glucose Point of Care 136 mg/dL (70-110)
[2022-10-13] MEDS: pantoprazole 40 mg SDV IVP (20:33)
[2022-10-14] VITALS (7 sets, daily range): BP systolic 110–157; BP diastolic 62–84; PULSE 70–100; RESP 16–19; TEMP 36.7–37; O2SAT 90–93
[2022-10-14 00:48] LABS: Glucose Point of Care 98 mg/dL (70-110)
[2022-10-14] MEDS: acetaminophen 325 mg Tablet 650 MG PO ×4 (01:34→20:29)
[2022-10-14] MEDS: piperacillin-tazobactam 3.375 GM in sodium chloride 0.9% (plus) 50 ML IV (01:35)
[2022-10-14] MEDS: ondansetron 2 mg/ML SDV 2 mL 4 MG IVP ×2 (05:00→17:54)
[2022-10-14 05:18] LABS: Basophils % 0.2 %; Eosinophils % 0.5 %; Hematocrit 29.2 % (37.0-47.0); Hemoglobin 9.2 g/dL (11.5-15.3); Lymphocytes # 1.6 10^3/uL (0.8-4.8); Lymphocytes % 18.3 %; Mean Corpuscular HGB Conc 31.5 g/dL (30.0-36.0); Mean Corpuscular Hemoglobin 29.3 pg (28.0-34.0); Monocytes # 0.4 10^3/uL (0.2-0.9); Monocytes % 4.4 %; Neutrophils # 6.76 10^3/uL (1.8-7.7); Neutrophils % 76.3 %; Nucleated Red Blood Cells % 0 %; Platelet Count 308 10^3/cmm (130-400); Red Blood Count 3.14 10^6/uL (4.1-5.3); Red Cell Distribution Width 13.8 % (12.1-15.1); White Blood Count 8.9 10^3/uL (4.0-10.0)
[2022-10-14 05:40] LABS: Blood Urea Nitrogen 10 mg/dL (8-23); Calcium 7.4 mg/dL (8.5-10.5); Carbon Dioxide 23 mmol/L (22-29); Chloride 107 mmol/L (98-107); Creatinine Clr Calc Pharmacy 57.2817; Glucose 85 mg/dL (65-115); Osmolality Calculated 284 mOsm/kg (285-295); Sodium 138 mmol/L (136-145)
[2022-10-14 05:41] LABS: Anion Gap 11.8 (5-19); Potassium 3.8 mmol/L (3.5-5.1)
[2022-10-14 06:37] LABS: Glucose Point of Care 95 mg/dL (70-110)
--- NOTE | 2022-10-14 08:16 | PM.PN ---
Subjective Subjective: No acute events overnight. Pain well controlled. Ambulatory. +flatus, awaiting BM. Vitals/I&O/Wt Last Vital Signs Temp 98.0 F 10/14/22 04:00 Pulse 81 10/14/22 04:00 Resp 18 10/14/22 04:00 BP 110/62 10/14/22 04:00 Pulse Ox 90 10/14/22 04:00 O2 Del Method 10/14/22 04:00 O2 Flow Rate 1 10/13/22 12:00 10/13/22 10/14/22 10/14/22 22:59 06:59 14:59 Intake Total 650 / 1300 50 / 1350 Balance 650 / 1300 50 / 1350 Physical Exam Const: COMMON NORMALS: no acute distress, average body habitus, patient oriented x3 and no limitations HENMT: COMMON NORMALS: normocephalic, atraumatic, external ears normal and Normal external nose present HEAD & SCALP: normocephalic and atraumatic NOSE: Normal external nose present EXTERNAL EAR: Yes external ears normal Eye: COMMON NORMALS: EOMs intact bilaterally and no scleral icterus GENERAL EYE: appearance normal, both eyes and all related structures Neck/C-Spine: COMMON NORMALS: full ROM, supple and no JVD Chest: COMMONS NORMALS: normal inspection of the chest CHEST: Yes Symmetrical chest wall rise Resp: COMMON NORMALS: normal respiratory effort, No retractions and No use of accessory muscles EFFORT & INSPECTION: Yes able to speak in complete sentences and Yes symmetric chest movement Cardio: COMMON NORMALS: no JVD GI: COMMON NORMALS: Soft to palpation INSPECTION: Yes abdominal distension (mild), Yes incision (inferior midline) Inspection of incision: healing well and Yes other (JESSENIA with 50 mL/day SS drainage) PALPATION: Yes Soft to palpation, Yes Tenderness to palpation present (GI) (appropriate periincisional), No Guarding due to palpation present (GI) and No Rigid due to palpation Extremity: COMMON NORMALS: normal to inspection and full ROM Neuro: COMMON NORMALS: patient oriented x3, moves all extremities, no focal motor deficits and no sensory deficits noted Psych: COMMON NORMALS: mental status grossly normal, Normal thought process present, cooperative and normal affect THOUGHT PROCESS: Normal thought process present Skin: COMMON NORMALS: no rashes or lesions noted GENERAL SKIN EXAM: no rashes or lesions noted Data 10/14/22 04:47 10/14/22 04:47 A&P Assessment and plan (1) Acute appendicitis with appendiceal abscess: (2) Mucocele of appendix: Plan POD3 from ileocecectomy for periappendiceal abscess and probably mucocele, recovering well. Awaiting bowel movement prior to discharge, continues to pass flatus. Leukocytosis resolved. 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
[2022-10-14] MEDS: amoxicillin-clav 500-125 mg Tablet 1 TAB PO ×3 (08:43→20:29)
[2022-10-14] MEDS: heparin 5,000 unit/mL INJ 1 mL 5000 UNIT SUBCUT ×2 (08:44→20:29)
[2022-10-14] MEDS: psyllium powder Pkt 1 PACKET PO (08:48)
[2022-10-14 11:11] LABS: Glucose Point of Care 188 mg/dL (70-110)
--- NOTE | 2022-10-14 13:03 | PC.SOCIAL ---
Pg 2 IMM Explained to pt Pg 2 IMM. No questions voiced. Provided pt a copy. Initialed, dated, & timed a copy & placed in chart.
[2022-10-14 17:00] LABS: Glucose Point of Care 111 mg/dL (70-110)
--- NOTE | 2022-10-14 20:38 | P.PN_ITS ---
Subjective Subjective: Today she is having some mild nausea. No vomiting. So far no BM. Vitals/I&O/Wt Last Vital Signs Temp 98.2 F 10/14/22 20:00 Pulse 70 10/14/22 20:00 Resp 19 H 10/14/22 20:00 BP 137/65 10/14/22 20:00 Pulse Ox 92 10/14/22 20:00 O2 Del Method 10/14/22 20:00 O2 Flow Rate 1 10/13/22 12:00 10/14/22 10/14/22 10/14/22 06:59 14:59 22:59 Intake Total 50 / 1350 410 / 410 360 / 770 Balance 50 / 1350 410 / 410 360 / 770 Physical Exam Const: COMMON NORMALS: patient oriented x3 and alert GENERAL APPEARANCE: cooperative ORIENTATION/CONSCIOUSNESS: Yes awake HENMT: COMMON NORMALS: oropharynx normal Neck/C-Spine: COMMON NORMALS: no JVD Resp: COMMON NORMALS: normal respiratory effort and clear to auscultation bilaterally AUSCULTATION: clear to auscultation bilaterally Cardio: COMMON NORMALS: no JVD, regular rhythm, S1 normal heart sound present, S2 normal heart sound present and No murmurs present (Cardio) RHYTHM: regular rhythm HEART SOUNDS: S1 normal heart sound present and S2 normal heart sound present GI: COMMON NORMALS: Normal to inspection, nondistended, normoactive bowel sounds present and Soft to palpation AUSCULTATION: Yes normoactive bowel sounds and Yes Absent bowel sounds PALPATION: Yes Soft to palpation OTHER: Serous appearing pinkish drainage from drain. Extremity: COMMON NORMALS: no joint enlargement and no pedal edema Neuro: COMMON NORMALS: patient oriented x3 and moves all extremities SENSORIUM/ORIENTATION: Yes alert Skin: COMMON NORMALS: no rashes or lesions noted GENERAL SKIN EXAM: no yasmani hes or lesions noted Data 10/14/22 04:47 10/14/22 04:47 A&P Assessment and plan (1) Mucocele of appendix: She is having some nausea today. As needed. So far otherwise improving well, although no BM yet. She was transitioned to oral antibiotic. expressed concern whether the course will be long enough, although so far she is improving well, there is no signs of anastomosis compromise or any purulent discharge from the drain. She remains afebrile with leukocytosis resolved. Continue reassessment while hospitalized. Status post open ileocecectomy for periappendiceal abscess, local purulent peritonitis. She has been ambulating. Tolerating diet so far, passing flatus, although no BM yet. Drain will be reassessed again tomorrow. Weaned off oxygen. (2) Acute appendicitis with appendiceal abscess: Attestations Medical Necessity Statement*: Continue admission for assessment management following ileocolectomy for periappendiceal abscess and local purulent peritonitis. 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
[2022-10-14] MEDS: pantoprazole 40 mg SDV IVP (21:11)
[2022-10-15] VITALS: BP 126/71; PULSE 60; RESP 16; TEMP 37.2; O2SAT 98
[2022-10-15 00:52] LABS: Glucose Point of Care 117 mg/dL (70-110)
--- NOTE | 2022-10-15 01:26 | PC.NURSE ---
Patient reported a significant amount of flatus during rounding, but continues to have no bowel movements.
[2022-10-15] MEDS: acetaminophen 325 mg Tablet 650 MG PO ×3 (02:25→22:10)
[2022-10-15 04:00] VITALS: BP 131/65; PULSE 77; RESP 19; TEMP 37.1; O2SAT 91
[2022-10-15 06:08] LABS: Basophils % 0.1 %; Eosinophils # 0.1 10^3/uL (0.0-0.8); Eosinophils % 1.2 %; Hematocrit 28.9 % (37.0-47.0); Hemoglobin 9.3 g/dL (11.5-15.3); Lymphocytes # 1.2 10^3/uL (0.8-4.8); Mean Corpuscular HGB Conc 32.2 g/dL (30.0-36.0); Mean Corpuscular Hemoglobin 29.2 pg (28.0-34.0); Mean Corpuscular Volume 90.9 fl (81-99); Mean Platelet Volume 9.6 fL (7.4-10.4); Monocytes # 0.5 10^3/uL (0.2-0.9); Monocytes % 6.4 %; Neutrophils # 5.86 10^3/uL (1.8-7.7); Nucleated Red Blood Cells % 0 %; Platelet Count 413 10^3/cmm (130-400); Red Blood Count 3.18 10^6/uL (4.1-5.3); Red Cell Distribution Width 13.9 % (12.1-15.1); White Blood Count 7.7 10^3/uL (4.0-10.0)
[2022-10-15 06:10] LABS: Anion Gap 11.5 (5-19); Blood Urea Nitrogen 8 mg/dL (8-23); Calcium 7.6 mg/dL (8.5-10.5); Carbon Dioxide 26 mmol/L (22-29); Chloride 104 mmol/L (98-107); Creatinine Clr Calc Pharmacy 57.2817; Glucose 100 mg/dL (65-115); Osmolality Calculated 284 mOsm/kg (285-295); Potassium 3.5 mmol/L (3.5-5.1); Sodium 138 mmol/L (136-145)
--- NOTE | 2022-10-15 06:21 | PC.NURSE ---
When emptying the JESSENIA drain, the amount for my shift was 60 mL.
[2022-10-15 06:44] LABS: Glucose Point of Care 112 mg/dL (70-110)
[2022-10-15 07:44] VITALS: BP 138/78; PULSE 68; RESP 17; TEMP 36.8; O2SAT 90
[2022-10-15] MEDS: amoxicillin-clav 500-125 mg Tablet 1 TAB PO ×3 (08:45→20:44)
[2022-10-15] MEDS: heparin 5,000 unit/mL INJ 1 mL 5000 UNIT SUBCUT ×2 (08:46→20:44)
--- NOTE | 2022-10-15 08:46 | PM.PN ---
Subjective Subjective: Vomiting last night after meal and this morning. Pain adequately controlled. Ambulatory. Passing flatus and BM. Vitals/I&O/Wt Last Vital Signs Temp 98.3 F 10/15/22 07:44 Pulse 68 10/15/22 07:44 Resp 17 10/15/22 07:44 BP 138/78 10/15/22 07:44 Pulse Ox 90 10/15/22 07:44 O2 Del Method 10/15/22 04:00 O2 Flow Rate 1 10/13/22 12:00 10/14/22 10/15/22 10/15/22 22:59 06:59 14:59 Intake Total 360 / 770 480 / 1250 Output Total 60 / 60 Balance 360 / 770 420 / 1190 Physical Exam Const: COMMON NORMALS: no acute distress, average body habitus, patient oriented x3 and no limitations HENMT: COMMON NORMALS: normocephalic, atraumatic, external ears normal and Normal external nose present HEAD & SCALP: normocephalic and atraumatic NOSE: Normal external nose present EXTERNAL EAR: Yes external ears normal Eye: COMMON NORMALS: EOMs intact bilaterally and no scleral icterus GENERAL EYE: appearance normal, both eyes and all related structures Neck/C-Spine: COMMON NORMALS: full ROM, supple and no JVD Chest: COMMONS NORMALS: normal inspection of the chest CHEST: Yes Symmetrical chest wall rise Resp: COMMON NORMALS: normal respiratory effort, No retractions and No use of accessory muscles EFFORT & INSPECTION: Yes able to speak in complete sentences and Yes symmetric chest movement Cardio: COMMON NORMALS: no JVD GI: COMMON NORMALS: Soft to palpation INSPECTION: Yes abdominal distension (mild), Yes incision (inferior midline) Inspection of incision: healing well and Yes other (JESSENIA with serous drainage, removed on AM rounds) PALPATION: Yes Soft to palpation, Yes Tenderness to palpation present (GI) (appropriate periincisional), No Guarding due to palpation present (GI) and No Rigid due to palpation Extremity: COMMON NORMALS: normal to inspection and full ROM Neuro: COMMON NORMALS: patient oriented x3, moves all extremities, no focal motor deficits and no sensory deficits noted Psych: COMMON NORMALS: mental status grossly normal, Normal thought process present, cooperative and normal affect THOUGHT PROCESS: Normal thought process present Skin: COMMON NORMALS: no rashes or lesions noted GENERAL SKIN EXAM: no rashes or lesions noted Data 10/15/22 05:44 10/15/22 05:44 A&P Assessment and plan (1) Acute appendicitis with appendiceal abscess: (2) Mucocele of appendix: Plan POD4 from ileocecectomy for periappendiceal abscess and probably mucocele, recovering well. Passing flatus and stool. Leukocytosis resolved. Has some nausea and vomiting. Continue pain control PO prn Continue regular diet as tolerated, gentle bowel regimen PO antibiotics to complete today Surgical drain removed on AM rounds Awaiting resolution of N/V prior to discharge Attestations Medical Necessity Statement*: Continue admission for assessment & management following ileocolectomy for periappendiceal abscess and local purulent peritonitis. 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
[2022-10-15 11:52] LABS: Glucose Point of Care 112 mg/dL (70-110)
[2022-10-15 12:00] VITALS: BP 136/75; PULSE 65; O2SAT 94
[2022-10-15] MEDS: ondansetron 2 mg/ML SDV 2 mL 4 MG IVP (15:01)
[2022-10-15 15:51] VITALS: BP 152/74; PULSE 72; RESP 18; O2SAT 92
[2022-10-15 17:07] LABS: Glucose Point of Care 133 mg/dL (70-110)
[2022-10-15 20:00] VITALS: BP 145/75; PULSE 80; RESP 16; TEMP 37.2; O2SAT 91
--- NOTE | 2022-10-15 20:31 | P.PN_ITS ---
Subjective Subjective: Today she again had a bit of nausea. Drain has been removed. She has ambulated. They have discussed with surgeon reassessment with consideration for discharge tomorrow if all goes well. Vitals/I&O/Wt Last Vital Signs Temp 98.3 F 10/15/22 07:44 Pulse 72 10/15/22 15:51 Resp 18 10/15/22 15:51 BP 152/74 10/15/22 15:51 Pulse Ox 92 10/15/22 15:51 O2 Del Method 10/15/22 04:00 O2 Flow Rate 1 10/13/22 12:00 10/15/22 10/15/22 10/15/22 06:59 14:59 22:59 Intake Total 480 / 1250 240 / 240 Output Total 60 / 60 Balance 420 / 1190 240 / 240 Physical Exam Narrative: Accompanied by her . In chair. Const: COMMON NORMALS: patient oriented x3 and alert GENERAL APPEARANCE: cooperative ORIENTATION/CONSCIOUSNESS: Yes awake HENMT: COMMON NORMALS: oropharynx normal Neck/C-Spine: COMMON NORMALS: no JVD Resp: COMMON NORMALS: normal respiratory effort and clear to auscultation bilaterally AUSCULTATION: clear to auscultation bilaterally Cardio: COMMON NORMALS: no JVD, regular rhythm, S1 normal heart sound present, S2 normal heart sound present and No murmurs present (Cardio) RHYTHM: regular rhythm HEART SOUNDS: S1 normal heart sound present and S2 normal heart sound present GI: COMMON NORMALS: Normal to inspection, nondistended, normoactive bowel sounds present and Soft to palpation AUSCULTATION: Yes normoactive bowel sounds and Yes Absent bowel sounds PALPATION: Yes Soft to palpation Extremity: COMMON NORMALS: no joint enlargement and no pedal edema Neuro: COMMON NORMALS: patient oriented x3 and moves all extremities SENSORIUM/ORIENTATION: Yes alert Skin: COMMON NORMALS: no rashes or lesions noted GENERAL SKIN EXAM: no rashes or lesions noted Data 10/15/22 05:44 10/15/22 05:44 A&P Assessment and plan (1) Mucocele of appendix: Some nausea today. Passing flatus. Has had BM. Drain is removed. Additional monitoring hospital today, if continues to improve possible discharge tomorrow. On Augmentin. Status post open ileocecectomy for periappendiceal abscess, local purulent peritonitis. She has been ambulating. Tolerating diet so far, passing flatus, although no BM yet. Drain will be reassessed again tomorrow. Weaned off oxygen. (2) Acute appendicitis with appendiceal abscess: Attestations Medical Necessity Statement*: Continue admission for assessment management following ileocolectomy for periappendiceal abscess and local purulent peritonit is. 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 Fwd Diagnoses Mucocele of appendix K38.8 Acute appendicitis with appendiceal abscess K35.33
[2022-10-15] MEDS: pantoprazole 40 mg SDV IVP (20:51)
[2022-10-16 00:40] VITALS: BP 149/75; PULSE 82; RESP 19; TEMP 37.2; O2SAT 90
[2022-10-16 01:18] LABS: Glucose Point of Care 123 mg/dL (70-110)
[2022-10-16 04:00] VITALS: BP 138/72; PULSE 82; RESP 19; TEMP 37.1; O2SAT 93
[2022-10-16 06:02] LABS: Glucose Point of Care 130 mg/dL (70-110)
--- NOTE | 2022-10-16 07:32 | P.PN_ITS ---
Subjective Subjective: No acute events overnight. Nausea resolved. Ambulatory. Continued bowel movements, loose now. Looking forward to discharge today. Vitals/I&O/Wt Last Vital Signs Temp 98.7 F 10/16/22 04:00 Pulse 82 10/16/22 04:00 Resp 19 H 10/16/22 04:00 BP 138/72 10/16/22 04:00 Pulse Ox 93 10/16/22 04:00 O2 Del Method 10/16/22 04:00 O2 Flow Rate 1 10/13/22 12:00 10/15/22 10/16/22 10/16/22 22:59 06:59 14:59 Intake Total 480 / 720 480 / 1200 Balance 480 / 720 480 / 1200 Physical Exam Const: COMMON NORMALS: no acute distress, average body habitus, patient oriented x3 and no limitations HENMT: COMMON NORMALS: normocephalic, atraumatic, external ears normal and Normal external nose present HEAD & SCALP: normocephalic and atraumatic NOSE: Normal external nose present EXTERNAL EAR: Yes external ears normal Eye: COMMON NORMALS: EOMs intact bilaterally and no scleral icterus GENERAL EYE: appearance normal, both eyes and all related structures Neck/C-Spine: COMMON NORMALS: full ROM, supple and no JVD Chest: COMMONS NORMALS: normal inspection of the chest CHEST: Yes Symmetrical chest wall rise Resp: COMMON NORMALS: normal respiratory effort, No retractions and No use of accessory muscles EFFORT & INSPECTION: Yes able to speak in complete sentences and Yes symmetric chest movement Cardio: COMMON NORMALS: no JVD GI: COMMON NORMALS: Soft to palpation INSPECTION: Yes abdominal distension (mild), Yes incision (inferior midline) Inspection of incision: healing well and Yes other (JESSENIA with serous drainage, removed on AM rounds) PALPATION: Yes Soft to palpation, Yes Tenderness to palpation present (GI) (appropriate periincisional), No Guarding due to palpation present (GI) and No Rigid due to palpation Extremity: COMMON NORMALS: normal to inspection and full ROM Neuro: COMMON NORMALS: patient oriented x3, moves all extremities, no focal m otor deficits and no sensory deficits noted Psych: COMMON NORMALS: mental status grossly normal, Normal thought process present, cooperative and normal affect THOUGHT PROCESS: Normal thought process present Skin: COMMON NORMALS: no rashes or lesions noted GENERAL SKIN EXAM: no rashes or lesions noted Data 10/15/22 05:44 10/15/22 05:44 A&P Assessment and plan (1) Acute appendicitis with appendiceal abscess: (2) Mucocele of appendix: Plan POD5 from ileocecectomy for periappendiceal abscess and probable mucocele, recovering well. Passing flatus and stool. Leukocytosis resolved. Nausea and vomiting resolved. Continue pain control PO prn Continue regular diet as tolerated No further antibiotics needed from surgical perspective Stable for and agreeable to discharge to home today Attestations Medical Necessity Statement*: Patient required admission for ileocecectomy for periappendiceal abscess and likely appendiceal mucocele. Coding Level of Care Code Acute Calender Operator for [facility] Diagnoses Acute appendicitis with appendiceal abscess K35.33 Mucocele of appendix K38.8
[2022-10-16 07:38] VITALS: BP 152/84; PULSE 71; RESP 16; TEMP 37.3; O2SAT 92
[2022-10-16] MEDS: heparin 5,000 unit/mL INJ 1 mL 5000 UNIT SUBCUT (08:39)
--- NOTE | 2022-10-16 10:36 | PC.SOCIAL ---
IMM update IMM updated with patient. Verbalized an understanding. Copy Pg 2 provided. Initialled, dated, timed, and placed in chart.
[2022-10-16 11:21] VITALS: BP 154/78; PULSE 74; RESP 16; TEMP 37.2; O2SAT 93
--- NOTE | 2022-10-16 11:45 | P.DS_ITS ---
Discharge Providers Date of Admission: 10/11/22 19:35 Date of Discharge: October 16, 2022 Attending Provider at Admission: Tonio Rutherford MD Attending Provider at Discharge: Lavon Villalpando Primary Care Provider: Yossi Canseco MD Diagnoses at Discharge Discharge Diagnosis (1) Acute appendicitis with appendiceal abscess: Status: Acute (2) Mucocele of appendix: Status: Acute Reason for Visit Reason for Visit: Perferated appendix per Dr. Canseco Hospital Course Hospital Course Pleasant 77-year-old lady was admitted for assessment of management of complicated appendicitis with perforation and abscess formation found on outpatient CT, was taken urgently to the OR with initially laparoscopic procedure necessitating conversion to a laparotomy with open ileus ectomy for periappendiceal abscess with intraoperative findings consistent with appendiceal mucocele and associated acute appendicitis with abscess, local peritonitis. Received also treatment with IV antibiotics with Zosyn. Remained afebrile, wit hout leukocytosis or other signs of sepsis. With subsiding pink/serous drainage in JESSENIA drains which are now removed. Bowel function gradually returned and she has had bowel movements. Tolerating oral intake. No further antibiotics per surgery. She is cleared for discharge. Stool sample is obtained at discharge to assess for C. difficile, although less likely. Stool is thickening up. Please follow-up C. difficile result. She is asked to hold off on antidiarrheals until result is available. Surgical pathology is pending. Physical Exam Narrative: accompanying her in the room. Const: COMMON NORMALS: patient oriented x3 and alert GENERAL APPEARANCE: cooperative ORIENTATION/CONSCIOUSNESS: Yes awake HENMT: COMMON NORMALS: oropharynx normal Neck/C-Spine: COMMON NORMALS: no JVD Resp: COMMON NORMALS: normal respiratory effort and clear to auscultation bilaterally AUSCULTATION: clear to auscultation bilaterally Cardio: COMMON NORMALS: no JVD, regular rhythm, S1 normal heart sound present, S2 normal heart sound present and No murmurs present (Cardio) RHYTHM: regular rhythm HEART SOUNDS: S1 normal heart sound present and S2 normal heart sound present GI: COMMON NORMALS: Normal to inspection, nondistended, normoactive bowel sounds present, Soft to palpation and non-tender PALPATION: Yes Soft to palpation Extremity: COMMON NORMALS: no joint enlargement and no pedal edema Neuro: COMMON NORMALS: patient oriented x3 and moves all extremities SENSORIUM/ORIENTATION: Yes alert Skin: COMMON NORMALS: no rashes or lesions noted GENERAL SKIN EXAM: no rashes or lesions noted Discharge Data Studies Completed and Pending Completed Studies During Hospitalization Category Date Time Status XR chest 1V portable [id number] Stat Exams 10/11/22 14:34 Completed Pending at discharge Category Date Time Status Blood Culture Stat Lab 10/11/22 20:41 Results CDIFF [Clostridioides Difficile PCR] Routine Lab 10/16/22 10:36 Ordered Pathology: Surgical [PTH] Routine Pth 10/11/22 19:30 Received Radiology Impressions Chest X-Ray 10/11/22 14:34 Impression: Atherosclerosis. Laboratory Results WBC 7.7 10^3/uL (4.0-10.0) 10/15/22 05:44 RBC 3.18 10^6/uL (4.1-5.3) L 10/15/22 05:44 Hgb 9.3 g/dL (11.5-15.3) L 10/15/22 05:44 Hct 28.9 % (37.0-47.0) L 10/15/22 05:44 MCV 90.9 fl (81-99) 10/15/22 05:44 MCH 29.2 pg (28.0-34.0) 10/15/22 05:44 MCHC 32.2 g/dL (30.0-36.0) 10/15/22 05:44 RDW 13.9 % (12.1-15.1) 10/15/22 05:44 Plt Count 413 10^3/cmm (130-400) H D 10/15/22 05:44 MPV 9.6 fL (7.4-10.4) 10/15/22 05:44 Neut % (Auto) 76.0 % 10/15/22 05:44 Lymph % (Auto) 15.0 % 10/15/22 05:44 [place] % (Auto) 6.4 % 10/15/22 05:44 Eos % (Auto) 1.2 % 10/15/22 05:44 Baso % (Auto) 0.1 % 10/15/22 05:44 Neut # (Auto) 5.86 10^3/uL (1.8-7.7) 10/15/22 05:44 Lymph # (Auto) 1.2 10^3/uL (0.8-4.8) 10/15/22 05:44 [place] # (Auto) 0.5 10^3/uL (0.2-0.9) 10/15/22 05:44 Eos # (Auto) 0.1 10^3/uL (0.0-0.8) 10/15/22 05:44 Baso # (Auto) 0.0 10^3/uL (0.0-0.1) 10/15/22 05:44 Nucleated RBC % (auto) 0 % 10/15/22 05:44 Nucleated RBCs # 0.0 /100WBC 10/15/22 05:44 Sodium 138 mmol/L (136-145) 10/15/22 05:44 Potassium 3.5 mmol/L (3.5-5.1) 10/15/22 05:44 Chloride 104 mmol/L (98-107) 10/15/22 05:44 Carbon Dioxide 26 mmol/L (22-29) 10/15/22 05:44 Anion Gap 11.5 (5-19) 10/15/22 05:44 BUN 8 mg/dL (8-23) 10/15/22 05:44 Creatinine 0.5 mg/dL (0.5-0.9) 10/15/22 05:44 GFR Calculation Not Reportable 10/15/22 05:44 Glucose 100 mg/dL (65-115) 10/15/22 05:44 POC Glucose 130 mg/dL (70-110) H 10/16/22 05:57 Calculated Osmolality 284 mOsm/kg (285-295) L 10/15/22 05:44 Lactic Acid 1.0 mmol/L (0.5-2.2) 10/11/22 22:13 Calcium 7.6 mg/dL (8.5-10.5) L 10/15/22 05:44 Magnesium 1.9 mg/dL (1.7-2.3) 10/12/22 04:45 Total Bilirubin 0.3 mg/dL (0.15-1.2) 10/13/22 01:12 AST 12 U/L (0-32) 10/13/22 01:12 ALT 15 U/L (0-33) 10/13/22 01:12 Alkaline Phosphatase 103 U/L (35-105) 10/13/22 01:12 Total Protein 5.7 g/dL (6.6-8.7) L 10/13/22 01:12 Albumin 2.8 g/dL (3.5-5.2) L 10/13/22 01:12 Globulin 2.9 g/dL (1.3-4.6) 10/13/22 01:12 Procalcitonin 0.57 ng/mL (0-0.5) H 10/11/22 22:13 Urine Color Yellow (Yellow) 10/12/22 03:30 Urine Appearance Clear (CLEAR) 10/12/22 03:30 Urine pH 5 (5-7) 10/12/22 03:30 Ur Specific [place] 1.020 (1.005-1.030) 10/12/22 03:30 Urine Protein Neg (Negative) 10/12/22 03:30 Urine Glucose (UA) Norm (Normal) 10/12/22 03:30 Urine Ketones 1+ (Negative) H 10/12/22 03:30 Urine Blood 2+ (Negative) H 10/12/22 03:30 Urine Nitrate Negative (Negative) 10/12/22 03:30 Urine Bilirubin Neg (Negative) 10/12/22 03:30 Urine Urobilinogen Norm mg/dL (Negative) 10/12/22 03:30 Ur Leukocyte Esterase Negative (Negative) 10/12/22 03:30 Urine RBC 5-10 /hpf (0-2) H 10/12/22 03:30 Urine WBC 0-4 /hpf (0-5) H 10/12/22 03:30 Ur Squamous Epith Cells 5-10 /hpf (0-5) H 10/12/22 03:30 Amorphous Sediment 1+ /hpf 10/12/22 03:30 Urine Bacteria None /hpf (NONE) 10/12/22 03:30 Vitals Last Vital Signs Temp 98.9 F 10/16/22 11:21 Pulse 74 10/16/22 11:21 Resp 16 10/16/22 11:21 BP 154/78 10/16/22 11:21 Pulse Ox 93 10/16/22 11:21 O2 Del Method 10/16/22 11:21 O2 Flow Rate 1 10/13/22 12:00 Discharge Plan Discharge Patient Disposition: Home Condition: Stable Prescriptions: Continued multivitamin Tablet 1 tab PO QAM ibuprofen 200 mg Tablet 400 mg PO Q6H PRN (Reason: Pain) oxybutynin chloride 5 mg tablet extended release 24hr 5 mg PO QAM calcium carbonate 500 mg calcium (1,250 mg) Tablet,Chewable 500 mg PO BID PRN (Reason: unknown) ondansetron 4 mg tablet,disintegrating 4 mg PO Q8H PRN (Reason: Nausea And Vomiting) Flonase 50 mcg/actuation [place],Suspension 2 spray INTRANASAL DAILY PRN (Reason: Allergy Symptoms) cranberry 500 mg Capsule 500 mg PO QAM Probiotic Blend 2 billion cell-50 mg Capsule 1 cap PO BEDTIME Held hydrochlorothiazide 12.5 mg tablet 12.5 mg PO QAM Hold Instructions: Resume on 10/23/22. Discharge Orders: Discharge Order (Routine); Ordered 10/16/22 Ordered By: Lavon Villalpando Other Ambulatory Orders: DME: Walker (Order) Location: None Selected Ordered By: Lavon Villalpando Referrals: [facility] [Outside] (Call to see about getting a walker for use at home. ) Geovani Edwards DO [Physician] - 2 weeks (staple removal and review of pathology following ileocecetomy for periappendiceal abscess and suspected mucocele. Call to see about an appointment on Monday, 10/17. ) Yossi Canseco MD [Primary Care Provider] - 1 week (Call to schedule a follow up on 10/17, for one week. ) Discharge Diet: Advance as tolerated and Usual diet Discharge Activity: Limit activity as instructed Patient Instructions: Appendicitis (GEN), Laparoscopic Appendectomy (DC), Bowel Resection (DC), Bowel Resection (GEN), Opioid Safety Activity Restrictions/Additional Instructions: No lifted > 20 lbs, no strenuous exercise/lifting/pushing/pulling for 3 weeks. Walking and stairs are appropriate activity. Discharge Attestations Time Spent in Discharge Care*: greater than 30 min Quality Metrics Clinical Quality Measures [ No reported AMI, CVA or VTE this stay] Coding Level of Care Code Acute Chg FW DC note Diagnoses Acute appendicitis with appendiceal abscess K35.33 Mucocele of appendix K38.8
[2022-10-16 12:08] VITALS: BP 154/78; PULSE 74; RESP 16; TEMP 37.2; O2SAT 93
[2022-10-16 12:49] LABS: Glucose Point of Care 129 mg/dL (70-110)
== END 2022-10-16 12:45 | disposition home or self-care (01) | DRG 331 ==
LOC: OR 16:31 → ER 16:31 → MEDSURG 19:36
PROVIDERS: Internal Medicine; Admitting Provider Surgery; Emergency Provider Family Medicine; PCP Family Medicine; Visit Provider Internal Medicine
PROC: 0DTJ4ZZ Resection of Appendix, Percutaneous Endoscopic Approach (ICD-10-PCS; CPT 44970; principal; 2022-10-11 16:30)
PROC: 0DTB0ZZ Resection of Ileum, Open Approach (ICD-10-PCS; CPT 44120; 2022-10-11 16:30)
DX: K35.33 Acute appendicitis with perforation, localized peritonitis, and gangrene, with abscess (principal); Z88.2 Allergy status to sulfonamides; I10 Essential (primary) hypertension; Z96.653 Presence of artificial knee joint, bilateral; K66.0 Peritoneal adhesions (postprocedural) (postinfection); K38.8 Other specified diseases of appendix
CPT/HCPCS: 12345; 36415; 36416; 71045; 74177; 80048; 80053; 81001; 82962; 83605; 83735; 84145; 85025; 87040; 87493; 88309; 93005; 94664; 96365; 96372; 99285; C9113; J0131; J0330; J1100; J1170; J1644; J2270; J2405; J2543; J2704; J2765; J3490; J7030; Q9967

== ENCOUNTER 2022-10-22 11:20 | Emergency (ER) | payer MEDICARE, OTHER, SELFPAY ==
[2022-10-22 11:35] VITALS: BP 179/77; PULSE 80; RESP 18; TEMP 36.8; O2SAT 97; BMI 29.7
[2022-10-22 12:40] LABS: Basophils % 0.1 %; Eosinophils # 0.1 10^3/uL (0.0-0.8); Hematocrit 31.7 % (37.0-47.0); Lymphocytes # 1.1 10^3/uL (0.8-4.8); Lymphocytes % 13.5 %; Mean Corpuscular HGB Conc 31.5 g/dL (30.0-36.0); Mean Corpuscular Hemoglobin 29.5 pg (28.0-34.0); Mean Corpuscular Volume 93.5 fl (81-99); Mean Platelet Volume 8.9 fL (7.4-10.4); Monocytes # 0.6 10^3/uL (0.2-0.9); Monocytes % 6.7 %; Neutrophils # 6.54 10^3/uL (1.8-7.7); Neutrophils % 77.6 %; Nucleated Red Blood Cells % 0 %; Platelet Count 427 10^3/cmm (130-400); Red Blood Count 3.39 10^6/uL (4.1-5.3); Red Cell Distribution Width 15.1 % (12.1-15.1); White Blood Count 8.4 10^3/uL (4.0-10.0)
[2022-10-22 13:10] LABS: Alanine Aminotransferase 25 U/L (0-33); Albumin Level 3.4 g/dL (3.5-5.2); Alkaline Phosphatase 145 U/L (35-105); Anion Gap 15.9 (5-19); Aspartate Amino Transferase 25 U/L (0-32); Blood Urea Nitrogen 7 mg/dL (8-23); Calcium 8.5 mg/dL (8.5-10.5); Carbon Dioxide 25 mmol/L (22-29); Chloride 100 mmol/L (98-107); Glucose 95 mg/dL (65-115); Osmolality Calculated 282 mOsm/kg (285-295); Potassium 3.9 mmol/L (3.5-5.1); Sodium 137 mmol/L (136-145); Total Bilirubin 0.3 mg/dL (0.15-1.2); Total Protein 6.4 g/dL (6.6-8.7)
--- NOTE | 2022-10-22 13:49 | CTR_ITS ---
PROCEDURE INFORMATION: Exam: CT Abdomen And Pelvis With Contrast Exam date and time: 10/22/2022 2:10 PM Age: 77 years old Clinical indication: Abdominal pain; Generalized; Prior surgery; Surgery date: 3-7 days post-operative; Additional info: Rule out infection, cellulitic abdomen, post appendectomy TECHNIQUE: Imaging protocol: Computed tomography of the abdomen and pelvis with contrast. Radiation optimization: All CT scans at this facility use at least one of these dose optimization techniques: automated exposure control; mA and/or kV adjustment per patient size (includes targeted exams where dose is matched to clinical indication); or iterative reconstruction. Contrast material: OMNI 350; Contrast volume: 100 ml; Contrast route: INTRAVENOUS (IV); COMPARISON: CT abdomen pelvis w con* [id number] 10/11/2022 2:02 PM RADIATION DOSE METRICS: Total DLP (mGy-cm): 575.71 FINDINGS: Lungs: See Pleural spaces finding. Pleural spaces: There is interval development of enhancing consolidation right lower lobe likely secondary atelectasis with small right basilar pleural effusion. There is mild subsegmental atelectasis at the left lung base that is also developed. Liver: See Stomach and bowel finding. Gallbladder and bile ducts: There are multiple small densities in the gallbladder likely representing noncalcified gallstones with mild thickening of the gallbladder wall. Pancreas: Normal. No ductal dilation. Spleen: Normal. No splenomegaly. Adrenal glands: Normal. No mass. Kidneys and ureters: Normal. No hydronephrosis. Stomach and bowel: There are postsurgical changes in the right lower quadrant with resolved the fluid collection. Previously noted inflammatory bowel wall thickening of the cecum has improved. There are mild inflammatory changes and a small amount of fluid remaining in the right the lower quadrant there overall improved. There is a mild extension superiorly to the inferior margin of the liver that is more apparent on the current study. The Appendix: No evidence of appendicitis. Intraperitoneal space: Unremarkable. No free air. No significant fluid collection. Vasculature: Unremarkable. No abdominal aortic aneurysm. Lymph nodes: Unremarkable. No enlarged lymph nodes. Urinary bladder: Unremarkable as visualized. Reproductive: Unremarkable as visualized. Bones/joints: Degenerative changes with mild grade 1 spondylolisthesis L4-L5. The a. No acute fracture. Soft tissues: There are postsurgical changes along the midline of the lower abdominal wall with a small amount of air just superficial to the abdominal wall musculature that may also be a postoperative in nature which should be followed up to exclude postop wound infection. CT/CT abdomen pelvis w con* [id number] IMPRESSION: 1. Postoperative and mild residual inflammatory changes right lower quadrant as discussed above. No residual abscess collection. 2. Postoperative changes along the lower abdominal wall with residual air for which continued follow-up recommended to exclude postop wound infection. 3. Cholelithiasis with mild thickening of the gallbladder wall, unchanged, nonspecific. 4. Interval development of right basilar atelectasis with small accompanying pleural effusion.
[2022-10-22] MEDS: iohexol 350 mg/mL 500 mL Btl (per mL) IV (14:25)
[2022-10-22 14:55] VITALS: BP 179/84; O2SAT 97
--- NOTE | 2022-10-22 17:04 | W.ED.WOUNDLC ---
HPI - Wound/Laceration General: Chief Complaint: Wound/Laceration Stated Complaint: incision infection History of Present Illness: Patient is a 77-year-old female that presents to the emergency department with complaints of erythema and drainage from the surgical site on the anterior abdomen. Patient is 10 days out from appendectomy after developing her tinnitus. Patient was treated here in [place] by Dr. gaines since that time she is also developed C. difficile. She [place] fever chills or abdominal pain at this time. She is currently being treated for C. difficile. Fidaxomicin through Monday. Patient has not been in contact with her surgeon. Associated symptoms: Denies chills, fever(s), nausea or vomiting Review of Systems General: Reports: 10 or more systems reviewed and unremarkable except in HPI and below Const: Denies: fever(s), chills, change in appetite, change in weight, fatigue or malaise Eyes: Denies: change in vision, eye discomfort, eye discharge or eye redness ENMT: Denies: throat pain, enlarged tonsils, odynophagia, hoarseness, ear or mastoid pain, ear discharge, change in hearing, tinnitus, nasal discharge, nasal congestion, post nasal drip or sinus pain Card: Denies: chest pain, palpitations, irregular heart rhythm, edema, dyspnea on exertion, orthopnea or leg pain with exertion Resp: Denies: dyspnea, productive cough, non-productive cough, wheezing, stridor or chest congestion GI: Denies: abdominal pain, nausea, vomiting, dysphagia, diarrhea, constipation, bloating, GI cramping or hematochezia : Denies: flank pain, difficulty voiding, dysuria, urinary frequency, urinary urgency, urinary hesitancy, oliguria or hematuria Musc: Denies: neck pain, back pain, extremity pain, joint pain, joint swelling, joint redness, joint warmth or muscle weakness Skin/Breast: Denies: rash, pruritus, erythema, photosensitivity or new lesions Neuro: Denies: headache(s), numbness in extremities, weakness in extremities, sensory changes, lack of coordination, difficulty walking, frequent falls, dizziness, confusion, Slurred speech present, difficulty communicating thoughts, seizure-like activity or involuntary movements Endo: Denies: polyuria, polydipsia or tired all the time Charlie/Lymph: Denies: easy bruising or easy bleeding PFS ED PFSH: Medical History HTN (hypertension) Surgical History Status post total knee replacement, bilateral Family History Other CAD (coronary artery disease) Cancer Stroke Denies family history of Diabetes Social History (Updated 10/22/22 @ 10:12 by Aurora Brannon LPN) Smoking and tobacco status: never smoked Alcohol intake: never Physical Exam Const: COMMON NORMALS: no acute distress, average body habitus, patient oriented x3, no limitations, healthy appearing, alert and well nourished GENERAL APPEARANCE: cooperative, comfortable and well developed; not in distress and not anxious ORIENTATION/CONSCIOUSNESS: Yes awake, Yes oriented to person, Yes oriented to place and Yes oriented to time HENMT: COMMON NORMALS: normocephalic, atraumatic, hearing grossly normal bilaterally, external ears normal, EAC's normal, TM's normal bilaterally, Normal external nose present and Normal nasal mucous membranes and turbinates present HEAD & SCALP: normal to inspection, normocephalic and atraumatic FACE & SINUS: normal facial exam and face symmetric NOSE: Normal external nose present, Normal nares present and Normal nasal mucous membranes and turbinates present GENERAL EAR: hearing not grossly impaired EXTERNAL EAR: Yes external ears normal and Yes no periauricular adenopathy EXTERNAL AUDITORY CANAL: EAC's normal TYMPANIC MEMBRANE: TM's normal bilaterally MOUTH: Normal oral and palatal mucosa present, lip normal, tongue normal and Normal salivary glands and ducts present THROAT: posterior oropharynx normal, tonsils normal and uvula midline Eye: COMMON NORMALS: Equal, round and reactive pupils present, EOMs intact bilaterally, conjunctivae normal, no scleral icterus and no papilledema GENERAL EYE: appearance normal, both eyes and all related structures ALIGNMENT: Yes alignment normal PERIORBITAL: periorbital findings normal EYELID: eyelids normal CONJUNCTIVA: Yes conjunctivae normal PUPIL: Yes Equal, round and reactive pupils present DIRECT OPHTHALMOSCOPY: Yes no papilledema Neck/C-Spine: COMMON NORMALS: full ROM, supple, no meningeal signs and no JVD GENERAL: Yes normal visual inspection CERVICAL SPINE: Yes cervical ROM normal Lymph: LYMPHATIC: no lymphadenopathy noted Chest: COMMONS NORMALS: normal inspection of the chest Breast/axilla inspection: Yes no chest deformity, asymmetry, normal contours, no nodules, masses, tenderness Resp: COMMON NORMALS: normal respiratory effort, No retractions, No use of accessory muscles and clear to auscultation bilaterally EFFORT & INSPECTION: Yes able to speak in complete sentences, Yes symmetric chest movement, No abnormal respiratory pattern, No tachypneic and No respiratory distress AUSCULTATION: clear to auscultation bilaterally Cardio: COMMON NORMALS: no JVD, regular rate, regular rhythm and Peripheral pulses 2+ throughout RATE: regular rate RHYTHM: regular rhythm PERIPHERAL PULSES: Peripheral pulses 2+ throughout GI: COMMON NORMALS: Soft to palpation INSPECTION: Yes normal to inspection PALPATION: Yes Soft to palpation OTHER: Abdomen is soft with mild tenderness to palpation. Does this is consistent with how she is felt since her appendectomy. Patient does report that this discomfort has continued to improve. Patient has a well approximated surgical site on the anterior abdomen tendons from superior of the umbilicus to suprapubic site. There is erythema that extends across right lower, midline, left lower quadrants. There is serous to serosanguineous drainage from the incision Bowel sounds present No increase in abdominal pain : COMMON NORMALS: Yes no CVA tenderness BLADDER/KIDNEY EXAM: Yes no CVA tenderness Back/Pelvis: COMMON NORMALS: no CVA tenderness, thoracic and lumbar spine normal to inspection, no thoracic nor lumbar tenderness, thoraco-lumbar ROM normal and straight leg raise negative bilaterally GENERAL BACK: No ecchymosis THORACIC SPINE/UPPER BACK: Yes normal to inspection LUMBAR SPINE/LOWER BACK: Yes normal to inspection and Yes straight leg raise negative bilaterally Extremity: COMMON NORMALS: normal to inspection, full ROM and capillary refill normal GENERAL: Yes normal exam except as noted Neuro: COMMON NORMALS: patient oriented x3 SENSORIUM/ORIENTATION: Yes alert, Yes oriented to person, Yes oriented to place and Yes oriented to time MENINGEAL SIGNS: Yes no meningeal signs Psych: COMMON NORMALS: mental status grossly normal, Normal thought process present, cooperative, normal affect, speech normal and activity/motor behavior normal SPEECH: Yes normal speech THOUGHT PROCESS: Normal thought process present Skin: COMMON NORMALS: no rashes or lesions noted, no wounds, turgor normal, no jaundice, no petechiae and no mottling GENERAL SKIN EXAM: no rashes or lesions noted and turgor normal Course Vital Signs: Vital signs: Vital Signs Temperature 98.2 F 10/22/22 11:35 Pulse Rate 80 10/22/22 11:35 Respiratory Rate 18 10/22/22 11:35 Blood Pressure 179/84 10/22/22 14:55 Pulse Oximetry 97 10/22/22 14:55 Oxygen Delivery Me thod 10/22/22 14:55 MDM - Wound/Laceration Medical Decision Making Patient was evaluated in the emergency department for complaints of cellulitis. Patient is 10 days out from an appendectomy due to ruptured appendix. She notes that the last 3 days she has developed some erythema and now drainage from her surgical site. Drainage is serous to serosanguineous. She does have cellulitis across the lower portion of the abdomen that underwent a CT abdomen pelvis with contrast that revealed no identifiable or drainable abscess. I did speak with Dr. Edwards. He has advised him Bactrim for the cellulitis. Since patient does have a sulfa allergy we began doxycycline twice daily. Patient is hesitant to take any additional antibiotics since she has had this episode of C. difficile. Have advised her to follow-up closely with her primary care and general surgeon. Dr. Edwards and I discussed her nontoxic-appearing state. It is felt that she can be managed outpatient. Patient is agreeable with this. Patient is to follow-up with surgeon this week for wound check All questions answered in detail Lab Data 10/22/22 12:33 10/22/22 12:33 Radiology Impressions Abdomen/Pelvis CT 10/22/22 13:49 IMPRESSION: 1. Postoperative and mild residual inflammatory changes right lower quadrant as discussed above. No residual abscess collection. 2. Postoperative changes along the lower abdominal wall with residual air for which continued follow-up recommended to exclude postop wound infection. 3. Cholelithiasis with mild thickening of the gallbladder wall, unchanged, nonspecific. 4. Interval development of right basilar atelectasis with small accompanying pleural effusion. Laboratory Results WBC 8.4 10^3/uL (4.0-10.0) 10/22/22 12:33 RBC 3.39 10^6/uL (4.1-5.3) L 10/22/22 12:33 Hgb 10.0 g/dL (11.5-15.3) L 10/22/22 12: Hct 31.7 % (37.0-47.0) L 10/22/22 12: MCV 93.5 fl (81-99) 10/22/22 12: MCH 29.5 pg (28.0-34.0) 10/22/22 12: MCHC 31.5 g/dL (30.0-36.0) 10/22/22 12: RDW 15.1 % (12.1-15.1) 10/22/22 12: Plt Count 427 10^3/cmm (130-400) H 10/22/22 12: MPV 8.9 fL (7.4-10.4) 10/22/22 12: Neut % (Auto) 77.6 % 10/22/22 12: Lymph % (Auto) 13.5 % 10/22/22 12: [place] % (Auto) 6.7 % 10/22/22 12: Eos % (Auto) 1.0 % 10/22/22 12: Baso % (Auto) 0.1 % 10/22/22 12: Neut # (Auto) 6.54 10^3/uL (1.8-7.7) 10/22/22 12: Lymph # (Auto) 1.1 10^3/uL (0.8-4.8) 10/22/22 12: [place] # (Auto) 0.6 10^3/uL (0.2-0.9) 10/22/22 12: Eos # (Auto) 0.1 10^3/uL (0.0-0.8) 10/22/22 12: Baso # (Auto) 0.0 10^3/uL (0.0-0.1) 10/22/22 12: Nucleated RBC % (auto) 0 % 10/22/22 12: Nucleated RBCs # 0.0 /100WBC 10/22/22 12: Sodium 137 mmol/L (136-145) 10/22/22 12: Potassium 3.9 mmol/L (3.5-5.1) 10/22/22 12: Chloride 100 mmol/L (98-107) 10/22/22 12:33 Carbon Dioxide 25 mmol/L (22-29) 10/22/22 12:33 Anion Gap 15.9 (5-19) 10/22/22 12:33 BUN 7 mg/dL (8-23) L 10/22/22 12:33 Creatinine 0.5 mg/dL (0.5-0.9) 10/22/22 12:33 GFR Calculation Not Reportable 10/22/22 12:33 Glucose 95 mg/dL (65-115) 10/22/22 12:33 Calculated Osmolality 282 mOsm/kg (285-295) L 10/22/22 12:33 Calcium 8.5 mg/dL (8.5-10.5) 10/22/22 12:33 Total Bilirubin 0.3 mg/dL (0.15-1.2) 10/22/22 12:33 AST 25 U/L (0-32) 10/22/22 12:33 ALT 25 U/L (0-33) 10/22/22 12:33 Alkaline Phosphatase 145 U/L (35-105) H 10/22/22 12:33 Total Protein 6.4 g/dL (6.6-8.7) L 10/22/22 12:33 Albumin 3.4 g/dL (3.5-5.2) L 10/22/22 12:33 Globulin 3.0 g/dL (1.3-4.6) 10/22/22 12:33 Discharge Plan Discharge Patient Disposition: Home Clinical Impression: Cellulitis Condition: Stable Prescriptions: New doxycycline hyclate 100 mg tablet 100 mg PO BID 7 Days Qty: 14 0RF No Action hydrochlorothiazide 12.5 mg tablet 12.5 mg PO QAM Hold Instructions: Resume on 10/23/22. multivitamin Tablet 1 tab PO QAM ibuprofen 200 mg Tablet 400 mg PO Q6H PRN (Reason: Pain) ondansetron 4 mg tablet,disintegrating 4 mg PO Q8H PRN (Reason: Nausea And Vomiting) fluticasone propionate 50 mcg/actuation [place],Suspension 2 spray INTRANASAL DAILY PRN (Reason: Allergy Symptoms) cranberry 500 mg Capsule 500 mg PO QAM Probiotic Blend 2 billion cell-50 mg Capsule 1 cap PO BEDTIME fidaxomicin 200 mg tablet 200 mg PO BID 10 Days Qty: 20 0RF Discharge Orders: Discharge ED (Routine); Ordered 10/22/22 Ordered By: Connie Ulrich Referrals: Geovani Edwards DO [Physician] - Yossi Canseco MD [Primary Care Provider] - Discharge Diet: Advance as tolerated Discharge Activity: Resume usual activity Patient Instructions: Cellulitis (ED) Activity Restrictions/Additional Instructions: Please take your antibiotics as prescribed. You may contact your primary care or general surgeon to discuss further They did originally when she did take Bactrim although with your sulfa allergy I have adjusted that to doxycycline. Please continue to take your other medications as prescribed Keep the incision clean and dry You may shower and let soap and water run over the site but do not submerge the wound in water. No creams or ointments or lotions to the wound Follow-up with Dr. Edwards this coming week for a wound check Follow-up with your primary care doctor as you desire. Coding Level of Care Code ED Employee Relations Specialist for Idalmis Garrett
== END 2022-10-22 15:49 | disposition home or self-care (01) ==
PROVIDERS: Emergency Provider Nurse Practitioner; PCP Family Medicine
DX: L03.311 Cellulitis of abdominal wall (principal); I10 Essential (primary) hypertension
CPT/HCPCS: 36415; 74177; 80053; 85025; 99284; Q9967

== ENCOUNTER → 2022-10-25 08:19 | Outpatient (BNVA) | payer MEDICARE, OTHER, SELFPAY | PROVIDERS: PCP Family Medicine; Visit Provider Surgery | DX: Z98.890 Other specified postprocedural states (principal); L03.90 Cellulitis, unspecified | CPT/HCPCS: 99024 ==

== ENCOUNTER → 2022-10-28 13:54 | Outpatient (BNVA) | payer MEDICARE, OTHER, SELFPAY | PROVIDERS: PCP Family Medicine; Visit Provider Surgery | DX: L03.311 Cellulitis of abdominal wall (principal); Z98.890 Other specified postprocedural states; Z90.49 Acquired absence of other specified parts of digestive tract | CPT/HCPCS: 99024 ==

== ENCOUNTER → 2023-02-01 15:01 | Outpatient (BNVA) | payer MEDICARE, OTHER, SELFPAY | PROVIDERS: PCP Family Medicine; Visit Provider Dermatology | DX: L82.1 Other seborrheic keratosis (principal); L82.0 Inflamed seborrheic keratosis; D22.39 Melanocytic nevi of other parts of face; L81.4 Other melanin hyperpigmentation; L57.8 Other skin changes due to chronic exposure to nonionizing radiation | CPT/HCPCS: 17110; 99213 ==

== ENCOUNTER → 2024-02-01 13:04 | Outpatient (BNVA) | payer MEDICARE, OTHER, SELFPAY | PROVIDERS: PCP Family Medicine; Visit Provider Dermatology | DX: L57.0 Actinic keratosis (principal); L82.0 Inflamed seborrheic keratosis; L82.1 Other seborrheic keratosis; B00.1 Herpesviral vesicular dermatitis; L81.4 Other melanin hyperpigmentation; D18.01 Hemangioma of skin and subcutaneous tissue | CPT/HCPCS: 17000; 17110; 99213 ==

== ENCOUNTER → 2024-07-23 10:45 | Outpatient (BNVA) | payer MEDICARE, OTHER, SELFPAY | PROVIDERS: PCP Family Medicine; Visit Provider Nurse Practitioner Family | DX: L57.0 Actinic keratosis (principal); S20.402A Unspecified superficial injuries of left back wall of thorax, initial encounter; X58.XXXA Exposure to other specified factors, initial encounter; L81.4 Other melanin hyperpigmentation; D18.01 Hemangioma of skin and subcutaneous tissue; L30.9 Dermatitis, unspecified | CPT/HCPCS: 11102; 17000; 99213 ==

== ENCOUNTER → 2024-08-05 10:47 | Outpatient (BNVA) | payer MEDICARE, OTHER, SELFPAY | PROVIDERS: PCP Family Medicine; Visit Provider Nurse Practitioner Family | DX: D48.5 Neoplasm of uncertain behavior of skin (principal); L90.0 Lichen sclerosus et atrophicus; S20.402A Unspecified superficial injuries of left back wall of thorax, initial encounter; X58.XXXA Exposure to other specified factors, initial encounter | CPT/HCPCS: 11102; 99214 ==

== ENCOUNTER → 2025-02-03 13:15 | Outpatient (BNVA) | payer MEDICARE, OTHER, SELFPAY | PROVIDERS: PCP Family Medicine; Visit Provider Dermatology | DX: L90.0 Lichen sclerosus et atrophicus (principal); L82.1 Other seborrheic keratosis; L81.4 Other melanin hyperpigmentation; D22.5 Melanocytic nevi of trunk; L21.8 Other seborrheic dermatitis; L57.0 Actinic keratosis | CPT/HCPCS: 17000; 99214 ==